=== PATIENT | male | born 1945 | race Caucasian/White ===

== ENCOUNTER 2016-12-12 12:28 | Emergency (ER) | payer OTHER ==
[2016-12-12 12:33] VITALS: BMI 32.3
--- NOTE | 2016-12-12 12:43 | DR.GENAD ---
HPI - PCP Primary Care Physician: KYLIE MEDINA - Complaint/Symptoms Chief Complaint:: PATIENT STATED THAT HE HAS BEEN UP ALMOST ALL NIGHT JUST NOT FEELING RIGHT. HE STATED THAT HE WOULD HAVE HOT THEN COLD FLASHES. HE ALSO STATED THAT HE GOT CHOKED ONE TIME AND ALMOST LOST HIS BREATH. - Nurses notes reviewed Nurses Notes Review: Yes - Source History Provided: Patient, EMS - Mode of Arrival Mode of Arrival: EMS - Timing Onset of Chief Complaint: 12/11/16 Came on: Gradually - Duration Duration: Intermittent How lon Duration: Hours - Location Location: lungs - Severity Severity: Mild - Modifying Factors Worsens:: exertion - Associated Signs and Symptoms Associated Signs and Symptoms: hx of cva PMH - PMH Past Medical History: Yes Past Medical History: Hypertension Past Surgical History: Yes Surgical History: Cholecystectomy - Family History History of Family Medical Conditions: Yes Family Medical History: Diabetes Mellitus, [place], Coronary Artery Disease, Hypertension - Social History Does patient currently use any type of tobacco product: No Have you used tobacco products in the last 12 months: No Type of Tobacco Use: None Does any household member use tobacco: No Alcohol Use: None Do you use any recreational Drugs:: No Lives With: Family Lives Where: Home - infectious screening In the last 2 months have you had wt loss of >10#?: NO Have you had fever, night sweats or hemotysis?: No Have you traveled outside the country in the last 6 months?: No Isolation: Standard ROS - Review of Systems Constitutional: No Symptoms Reported Eyes: Blurred Vision (macular degeneration) ENTM: Nose Congestion Respiratoy: No Symptoms Reported Cardiovascular: No Symptoms Reported Gastrointestinal/Abdominal: No Symptoms Reported Genitourinary: No Symptoms Reported Neurological: No Symptoms Reported Musculoskeletal: No Symptoms Reported Integumentary: No Symptoms Reported Hematologic/Lymphatic: No Symptoms Reported Psychiatric: Anxiety PE - Vital Signs Vitals: Temperature 97.7 F Pulse Rate [Carotid] 91 Pulse Rate 84 Respiratory Rate 18 Blood Pressure [Right Arm] 152/88 Blood Pressure 165/88 O2 Sat by Pulse Oximetry 97 - General Limitations: No Limitations General Appearance: Alert, In No Apparent Distress - Head Head Exam: Normal Inspection - Eyes Eye exam: Normal Appearance, EOMI. negative: Scleral Icterus, Conjunctival Injection - ENT ENT Exam: Normal Exam, Normal Oropharynx External Ear Exam: Normal External Inspection Nose Exam: Normal Nose Exam Mouth Exam: Normal Inspection Throat Exam: Normal Inspection - Neck Neck Exam: Normal Inspection, Full ROM, Trachea Midline - Chest Chest Inspection: Normal Inspection - Respiratory Respiratory Exam: Normal Lung Sounds Bilat. negative: Accessory Muscle Use, Respiratory Distress Respiratory Exam: Bilateral Clear to Auscultation - Cardiovascular Cardiovascular Exam: Regular Rate - Abdominal Exam Abdominal Exam: Normal Inspection, Normal Bowel Sounds, Soft - Extremities Extremities Exam: Normal Inspection, Full ROM - Back Back Exam: Normal Inspection - Neurologic Neurological Exam: Alert, Oriented X3, CN II-XII Intact - Psychiatric Psychiatric Exam: Depressed - Skin Skin Exam: Intact, Normal Color Course - Consultation Called: 15:32 Call Returned: 15:32 Consultation Comments: case discussed with DR. Calvo will put in observation, Chest pain protocol ROR - Labs Reviewed Result Diagrams: 12/12/16 13:24 12/12/16 13:24 Laboratory: WBC 5.4 X10^3/uL (3.6-10.0) 12/12/16 13:24 RBC 5.64 X10^6/uL (4.7-6.0) 12/12/16 13:24 Hgb 15.9 g/dL (13.5-18.0) 12/12/16 13:24 Hct 46.1 % (42.0-54.0) 12/12/16 13:24 MCV 81.8 fL (80.0-100.0) 12/12/16 13:24 MCH 28.2 pg (27.0-34.0) 12/12/16 13:24 MCHC 34.5 g/dL (33.0-35.0) 12/12/16 13:24 RDW 14.4 % (11.6-16.5) 12/12/16 13:24 Plt Count 202 X10^3/uL (150.0-450.0) 12/12/16 13:24 MPV 9.0 fL (7.4-11.0) 12/12/16 13:24 Neut % 61.0 % (42.0-75.0) 12/12/16 13:24 Lymph % 29.7 % (21.0-51.0) 12/12/16 13:24 [place] % 6.1 % (0.0-13.0) 12/12/16 13:24 Eos % 2.7 % (0.9-2.9) 12/12/16 13:24 Baso % 0.5 % (0.2-1.0) 12/12/16 13:24 Neut # 3.3 x10^3/uL (2.2-4.8) 12/12/16 13:24 Lymph # 1.6 X10^3/uL (1.3-2.9) 12/12/16 13:24 [place] # 0.3 x10^3/uL (0.3-0.8) 12/12/16 13:24 Eos # 0.1 x10^3/uL (0.0-0.2) 12/12/16 13:24 Baso # 0.0 X10^3/uL (0.0-0.1) 12/12/16 13:24 Absolute Nucleated RBC 0.0 /100WBC 12/12/16 13:24 D-Dimer < 100 ng/mL (0-400) 12/12/16 13:24 Sodium 141 mmol/L (136-145) 12/12/16 13:24 Corrected Sodium 143 mmol/L (136-145) 12/12/16 13:24 Potassium 3.6 mmol/L (3.5-5.1) 12/12/16 13:24 Chloride 105 mmol/L (98-107) 12/12/16 13:24 Carbon Dioxide 24.1 mmol/L (21-32) 12/12/16 13:24 BUN 9 mg/dL (7-18) 12/12/16 13:24 Creatinine 1.11 mg/dL (0.70-1.30) 12/12/16 13:24 Est GFR (MDRD) Af Amer > 60 (>60) 12/12/16 13:24 Est GFR (MDRD) Non-Af > 60 (>60) 12/12/16 13:24 Glucose 202 mg/dL (65-99) H 12/12/16 13:24 Calcium 9.1 mg/dL (8.5-10.1) 12/12/16 13:24 Corrected Calcium TNP 12/12/16 13:24 Total Bilirubin 1.30 mg/dL (0.2-1.0) H 12/12/16 13:24 AST 36 Units/L (15-37) 12/12/16 13:24 ALT 69 Units/L (12-78) 12/12/16 13:24 Alkaline Phosphatase 60 Units/L (46-116) 12/12/16 13:24 Creatine Kinase 134 Units/L (39-308) 12/12/16 13:24 CK-MB (CK-2) 1.4 ng/mL (0-4.0) 12/12/16 13:24 CK/CKMB % Calc 1.0 % (<4) 12/12/16 13:24 Troponin I < 0.02 ng/mL (0-1.5) 12/12/16 13:24 B-Natriuretic Peptide 10.6 pg/mL (0-79) 12/12/16 13:24 Total Protein 7.3 g/dL (6.4-8.2) 12/12/16 13:24 Albumin 4.0 g/dL (3.4-5.0) 12/12/16 13:24 Globulin 3.3 g/dL (2.5-4.5) 12/12/16 13:24 Albumin/Globulin Ratio 1.2 Ratio (1.1-2.1) 12/12/16 13:24 Specimen Type Clean catch urine 12/12/16 14:21 Urine Color Yellow (YELLOW) 12/12/16 14:21 Urine Appearance Hazy (CLEAR) 12/12/16 14:21 Urine pH 8.0 (5.0 - 8.0) 12/12/16 14:21 Ur Specific [place] 1.015 (1.000-1.030) 12/12/16 14:21 Urine Protein Negative (NEGATIVE) 12/12/16 14:21 Urine Glucose (UA) 4+ (NEGATIVE) 12/12/16 14:21 Urine Ketones Negative (NEGATIVE) 12/12/16 14:21 Urine Occult Blood Negative (NEGATIVE) 12/12/16 14:21 Urine Nitrite Negative (NEGATIVE) 12/12/16 14:21 Urine Bilirubin Negative (NEGATIVE) 12/12/16 14:21 Urine Urobilinogen Normal (NORMAL) 12/12/16 14:21 Ur Leukocyte Esterase Negative (NEGATIVE) 12/12/16 14:21 Urine RBC 0-2 /HPF (NEGATIVE) 12/12/16 14:21 Urine WBC 0-2 /HPF (NEGATIVE) 12/12/16 14:21 Ur Squamous Epith Cells Rare /HPF (NEGATIVE) 12/12/16 14:21 Urine Bacteria 1+ /HPF (NEGATIVE) 12/12/16 14:21 Ur Culture Indicated? No/not indicated 12/12/16 14:21 - XRAY XRAY Interpreted by: Radiologist XRAY Findings: chest: no acute disease - EKG Rate: 82 [place]: Normal Rhythm: NSR Block: None Hypertrophy: None ST: Normal - Diagnosis Discharge Problem: Dyspnea on exertion - Discharge Plan Condition: Stable - Follow ups/Referrals Follow ups/Referrals: GARDENIA MEDINA [Primary Care Provider] - 3 days - Instructions
[2016-12-12] MEDS ORDERED: ZOFRAN INJ 4 MG VIAL ONE (13:00)
[2016-12-12] MEDS ORDERED: ZOFRAN INJ 4 MG VIAL IVP ONE (13:00)
--- NOTE | 2016-12-12 13:23 | RAD ---
HISTORY: Shortness of breath Study: PA and lateral chest Comparison: October 2013 Findings: The trachea is midline. The cardiac silhouette is unremarkable. The lungs are clear without focal infiltrate or effusion. The bony thorax is unremarkable. IMPRESSION: 1. No acute cardiopulmonary disease. Reported By:
[2016-12-12 13:41] LABS: BASOPHILS % (AUTO) 0.5 % (0.2-1.0); EOSINOPHILS # (AUTO) 0.1 x10^3/uL (0.0-0.2); EOSINOPHILS % (AUTO) 2.7 % (0.9-2.9); HEMATOCRIT 46.1 % (42.0-54.0); HEMOGLOBIN 15.9 g/dL (13.5-18.0); LYMPHOCYTES # (AUTO) 1.6 X10^3/uL (1.3-2.9); LYMPHOCYTES % (AUTO) 29.7 % (21.0-51.0); MEAN CORPUSCULAR HEMOGLOBIN 28.2 pg (27.0-34.0); MEAN CORPUSCULAR HGB CONC 34.5 g/dL (33.0-35.0); MEAN CORPUSCULAR VOLUME 81.8 fL (80.0-100.0); MONOCYTES # (AUTO) 0.3 x10^3/uL (0.3-0.8); MONOCYTES % (AUTO) 6.1 % (0.0-13.0); NEUTROPHILS # (AUTO) 3.3 x10^3/uL (2.2-4.8); PLATELET COUNT 202 X10^3/uL (150.0-450.0); RED BLOOD COUNT 5.64 X10^6/uL (4.7-6.0); RED CELL DISTRIBUTION WIDTH 14.4 % (11.6-16.5); WHITE BLOOD COUNT 5.4 X10^3/uL (3.6-10.0)
[2016-12-12 13:50] LABS: BLOOD UREA NITROGEN 9 mg/dL (7-18); CALCIUM 9.1 mg/dL (8.5-10.1); CARBON DIOXIDE 24.1 mmol/L (21-32); CHLORIDE 105 mmol/L (98-107); COR NA(FOR HYPERGLY) 143 mmol/L (136-145); CREATININE 1.11 mg/dL (0.70-1.30); GLUCOSE 202 mg/dL (65-99); SODIUM 141 mmol/L (136-145); TROPONIN I < 0.02 ng/mL (0-1.5); eGFR BLACK RACES > 60 (>60); eGFR NON BLACK RACES > 60 (>60)
[2016-12-12 13:55] LABS: ALANINE AMINOTRANSFERASE 69 Units/L (12-78); ALKALINE PHOSPHATASE 60 Units/L (46-116); ASPARTATE AMINO TRANSFERASE 36 Units/L (15-37); CREATINE KINASE 134 Units/L (39-308); CREATINE KINASE MB 1.4 ng/mL (0-4.0); TOTAL PROTEIN 7.3 g/dL (6.4-8.2)
[2016-12-12 14:30] LABS: BILIRUBIN,URINE NEGATIVE (NEGATIVE); BLOOD/HEMOGLOBIN,URINE NEGATIVE (NEGATIVE); GLUCOSE, URINE 4+ (NEGATIVE); KETONES,URINE NEGATIVE (NEGATIVE); LEUKOCYTE ESTERASE ,URINE NEGATIVE (NEGATIVE); NITRITES,URINE NEGATIVE (NEGATIVE); PROTEIN,URINE NEGATIVE (NEGATIVE); UROBILINOGEN,URINE NORMAL (NORMAL)
[2016-12-12 14:40] LABS: APPEARANCE,URINE HAZY (CLEAR); BACTERIA,URINE 1+ /HPF (NEGATIVE); COLOR,URINE YELLOW (YELLOW); RBC,URINE 0-2 /HPF (NEGATIVE); SQUAMOUS EPITHELIAL CELL,UR RARE /HPF (NEGATIVE)
[2016-12-12 17:17] LABS: CKMB % 0.6 % (<4); CREATINE KINASE 195 Units/L (39-308); CREATINE KINASE MB 1.1 ng/mL (0-4.0); TROPONIN I < 0.02 ng/mL (0-1.5)
[2016-12-12] MEDS ORDERED: ZOFRAN INJ 4 MG VIAL IVP PRN (18:11)
[2016-12-12] MEDS ORDERED: VALIUM PO PRN (18:28)
[2016-12-12] MEDS ORDERED: VALIUM PO ONE (18:29)
[2016-12-12] MEDS ORDERED: TRICOR TAB 48 MG PO SCH (21:00)
[2016-12-12] MEDS ORDERED: LIPITOR TAB 40 MG PO SCH (21:00)
--- NOTE | 2016-12-12 21:41 | CT ---
CT brain without contrast Indication: Headache and dizziness Comparison: 12/13/2015 Technique: Multiple axial images of the brain were obtained from the skull base to the vertex without administr ation of IV contrast. Coronal and sagittal images were also provided. Radiation dose reduction techniques were performed utilizing adjustment for MA/kVP based on patient body size. Findings: There is fairly severe encephalomalacia within the left cerebellar hemisphere consistent with evolut ion of remote infarct. There is increased attenuation within the left greater than right middle cerebral arteries. Similar findings were seen on prior examination. No evidence of acute infarct within either middle cerebral arterial territories. There is no change in bilateral periventricular and deep white matter hypoatte nuation most consistent with chronic microvascular ischemic disease. Generalized cerebral atrophy. N o acute osseous abnormality. Ventricles are normal in caliber. Sinuses are clear. Orbits are normal. IMPRESSION: 1. Aside for evolution of left cerebellar hemisphere infarct no change from prior examination. No ac [place] intracranial hemorrhage mass effect or vasogenic edema. 2. Please note there is a small metallic foreign body along the lateral aspect of the left globe. Reported By:
[2016-12-12] MEDS: NEURONTIN CAP 300 MG PO SCH (22:14)
[2016-12-12] MEDS: PriLOSEC PO SCH (22:14)
[2016-12-12] MEDS: NORVASC TAB 5 MG PO SCH (22:14)
[2016-12-12] MEDS: HumuLIN R SC PRN (22:27)
[2016-12-12 23:20] LABS: CKMB % 0.7 % (<4); CREATINE KINASE 160 Units/L (39-308); CREATINE KINASE MB 1.1 ng/mL (0-4.0); TROPONIN I < 0.02 ng/mL (0-1.5)
[2016-12-13] MEDS: NEURONTIN CAP 300 MG PO SCH ×2 (06:12→13:57)
[2016-12-13] MEDS: HumuLIN R SC PRN ×2 (06:20→14:12)
--- NOTE | 2016-12-13 06:30 | RAD ---
HISTORY: Shortness of breath Study: Chest one view Comparison: December 12, 2016 Findings: The trachea is midline. The cardiac silhouette is mildly enlarged. No congestive heart failure is n oted.. The lungs are mildly hypoinflated but free of acute infiltrates. No pleural effusions are id entified.. The bony thorax is unremarkable. IMPRESSION: 1. Mild cardiomegaly without congestive heart failure 2. Lungs mildly hypoinflated but clear Reported By:
[2016-12-13 06:35] LABS: BASOPHILS # (AUTO) 0.1 X10^3/uL (0.0-0.1); BASOPHILS % (AUTO) 0.9 % (0.2-1.0); EOSINOPHILS # (AUTO) 0.2 x10^3/uL (0.0-0.2); EOSINOPHILS % (AUTO) 3.7 % (0.9-2.9); HEMATOCRIT 42.4 % (42.0-54.0); HEMOGLOBIN 14.9 g/dL (13.5-18.0); LYMPHOCYTES % (AUTO) 31.6 % (21.0-51.0); MEAN CORPUSCULAR HEMOGLOBIN 28.3 pg (27.0-34.0); MEAN CORPUSCULAR VOLUME 80.8 fL (80.0-100.0); MEAN PLATELET VOLUME 9.2 fL (7.4-11.0); MONOCYTES # (AUTO) 0.5 x10^3/uL (0.3-0.8); MONOCYTES % (AUTO) 7.5 % (0.0-13.0); NEUTROPHILS # (AUTO) 3.5 x10^3/uL (2.2-4.8); NEUTROPHILS % (AUTO) 56.3 % (42.0-75.0); PLATELET COUNT 197 X10^3/uL (150.0-450.0); RED BLOOD COUNT 5.25 X10^6/uL (4.7-6.0); RED CELL DISTRIBUTION WIDTH 14.6 % (11.6-16.5); WHITE BLOOD COUNT 6.3 X10^3/uL (3.6-10.0)
[2016-12-13 06:56] LABS: ALANINE AMINOTRANSFERASE 60 Units/L (12-78); ALBUMIN 3.6 g/dL (3.4-5.0); ALKALINE PHOSPHATASE 57 Units/L (46-116); ASPARTATE AMINO TRANSFERASE 27 Units/L (15-37); BLOOD UREA NITROGEN 13 mg/dL (7-18); CALCIUM 8.9 mg/dL (8.5-10.1); CARBON DIOXIDE 25.9 mmol/L (21-32); CHLORIDE 107 mmol/L (98-107); CHOL/HDL RATIO 3.9 (0.0-5.0); CHOLESTEROL 110 mg/dL (0-200); CKMB % 0.6 % (<4); COR NA(FOR HYPERGLY) 144 mmol/L (136-145); CREATINE KINASE 164 Units/L (39-308); CREATININE 1.37 mg/dL (0.70-1.30); GLUCOSE 149 mg/dL (65-99); HDL CHOLESTEROL 28 mg/dL (40-60); SODIUM 143 mmol/L (136-145); TOTAL PROTEIN 6.6 g/dL (6.4-8.2); TRIGLYCERIDES 156 mg/dL (0-150); TROPONIN I < 0.02 ng/mL (0-1.5); eGFR BLACK RACES > 60 (>60); eGFR NON BLACK RACES 54 (>60)
[2016-12-13] MEDS ORDERED: GLUCOTROL XL PO SCH (09:00)
[2016-12-13] MEDS ORDERED: JANUVIA PO SCH (09:00)
[2016-12-13] MEDS ORDERED: SYNTHROID 50 mcg TAB PO SCH (09:00)
[2016-12-13] MEDS ORDERED: PLAVIX PO SCH (09:00)
[2016-12-13] MEDS ORDERED: ASPIRIN EC 81 MG PO SCH (09:00)
[2016-12-13] MEDS: NORVASC TAB 5 MG PO SCH (09:18)
[2016-12-13] MEDS: PriLOSEC PO SCH (09:19)
--- NOTE | 2016-12-13 13:04 | DR.CARTERS ---
Short Stay Summary - Short Stay Summary for: Short Stay Summary for Date of:: 12/13/16 - Admission Date Date of Admission: 12/12/16 - Discharge Date Discharge Date: 12/13/16 - Admission Diagnoses (1) Dizziness Status: Acute (2) Headache Status: Acute (3) Nausea Status: Acute (4) History of CVA (cerebrovascular accident) Status: Acute (5) Dyspnea on exertion Status: Acute (6) Diabetes mellitus, type 2 Status: Chronic (7) GERD (gastroesophageal reflux disease) Status: Chronic (8) Hyperlipidemia Status: Chronic (9) Hypertension Status: Chronic (10) Hypothyroidism Status: Chronic - Hospital Course Hospital Course: DAY 1 OF HOSPITAL STAY: IS A 71 YEAR OLD PATIENT OF [facility]. HE PRESENTED TO THE ER WITH COMPLAINS OF HEADACHE, DIZZINESS, NAUSEA, AND SHORTNESS OF BREATH. HE STATED THAT HE HAD A STROKE A YEAR AGO AND THAT HE HAD JUST NOT BEEN FEELING RIGHT. HE VERBALIZED COLD FLASHES AND FEELING LIKE HE WAS CHOKING. LABS AND XRAYS WERE OBTAINED IN ER AND REPORTED THE FOLLOWING: CBC WAS WNL. CMP WAS WNL EXCEPT GLUCOSE 202, AND TOTAL BILIRUBIN 1.30. CARDIAC ENZYMES WERE WNL. URINALYSIS WNL. EKG WAS WNL. CHEST XRAY WNL. BECAUSE OF HIS PREVIOUS CVA, WE ADMITTED PATIENT FOR FURTHER TREATMENT AND EVALUATION. WE CONTINUED PATIENT'S HOME MEDICATIONS OF ASA, PLAVIX, AND LIPTIOR. DAY 2 OF HOSPITAL STAY: PATIENT'S CONDITION IMPROVED. PATIENT WAS NOTED WITH NO MENTAL STATUS CHANGES AND REPORTED THAT DIZINESS HAD IMPROVED. PATIENT WAS NOTED WITH NO WEAKNESS. WE OBTAINED A BRAIN CT TO RULE OUT CVA. IT REPORTED EVOLUTION OF LEFT CEREBELLAR HEMISPHERE INFARCT NO CHANGE FROM PRIOR EXAMINATION. NO INTRACRANIAL HEMORRHAGE MASS EFFECT OR VASOGENIC EDEMA. A SMALL METALLIC FROEIGN BODY ALONG THE LATERAL ASPECT OF THE LEFT GLOVE WAS SEEN. PATIENT WAS SCHEDULED FOR A CARDIAC CTA YESTERDAY, HOWEVER, TEST WAS UNABLE TO BE OBTAINED DUE TO ACUTE DIZZINESS. THIS TEST WILL BE COMPLETED OUTPATIENT AND WILL BE SCHEDULED ON DISCHARGE. HE WILL CONTINUE ON CURRENT MEDICATIONS AND FOLLOW-UP WITH FOR NUCLEAR STRESS TEST IF NEEDED. WE PLANNED FOR DISCHARGE. INSTRUCTIONS FOR FOLLOW-UP AND MEDICATIONS WERE DISCUSSED WITH PATIENT AND FAMILY. BOTH VERBALIZED UNDERSTANDING. PATIENT WAS DISCHARGED HOME IN STABLE CONDITION WITH FAMILY. - Discharge Medications Discharge Medications: Atorvastatin Calcium 1 tab PO HS 12/12/16 [History] Clopidogrel Bisulfate [Clopidogrel] 1 tab PO DAILY 12/12/16 [History] Gabapentin 2 tabs PO TID 12/12/16 [History] Glipizide [Glipizide ER 5 mg] 1 tab PO DAILY 12/12/16 [History] Potassium Chloride [Potassium Chloride ER] 1 tab PO QID PRN 12/12/16 [History] Aspirin [ASPIRIN 325 MG *] 325 mg PO DAILY #100 tab 12/13/16 [Rx] Ranitidine HCl [ZANTAC TAB 150 MG *] 150 mg PO DAILY #30 tab 12/13/16 [Rx] - Discharge Plan Disposition: HOME, SELF-CARE Condition: Stable Prescriptions: Aspirin [ASPIRIN 325 MG *] 325 mg PO DAILY #100 tab Ranitidine HCl [ZANTAC TAB 150 MG *] 150 mg PO DAILY #30 tab - Follow up/Referrals Follow up/Referrals: , CARDIOLOGY [Other] GARDENIA MEDINA [Primary Care Provider] - 12/20/16 9:00 am - Instructions Instructions: Ranitidine tablets or capsules, Fall Prevention in the Home, Easy -to-Read, Stroke Prevention, [id number], Form - Blood Pressure Record Sheet, Aspirin and Your Heart, Hypertension, [id number], Aspirin, ASA oral tablets, Managing Your High Blood Pressure, Chest Pain Observation Additional Instructions: ACTIVITY TOLERATED. DIET TOLERATED. Forms: Patient Portal
[2016-12-13 13:25] VITALS: BP 125/79
[2016-12-13] MEDS ORDERED: SNACK - Diabetic Appropriate PO SCH (20:00)
== END 2016-12-13 16:05 | disposition home or self-care (01) ==
LOC: ER 12:34 → MED/SURG 15:34 → ICU 16:42
PROVIDERS: ADMIT Internal Medicine; ATTEND Internal Medicine
DX: R06.02 Shortness of breath (principal); R42 Dizziness and giddiness; R06.09 Other forms of dyspnea; R07.89 Other chest pain; R51 Headache; I10 Essential (primary) hypertension; R94.31 Abnormal electrocardiogram [ECG] [EKG]; I51.7 Cardiomegaly; R11.0 Nausea; E11.65 Type 2 diabetes mellitus with hyperglycemia; K21.9 Gastro-esophageal reflux disease without esophagitis; E78.2 Mixed hyperlipidemia; E03.8 Other specified hypothyroidism; Z86.73 Personal history of transient ischemic attack (TIA), and cerebral infarction without residual deficits; M54.2 Cervicalgia
CPT/HCPCS: 36415; 70450; 71010; 71020; 80053; 80061; 81001; 82550; 82553; 83880; 84484; 85025; 85378; 93005; 93306; 96365; 96374; 99284; A4216; G0378; J1815; J2405

== ENCOUNTER → 2016-12-12 | Outpatient (CLI) | payer SELFPAY ==
[2016-12-12 14:24] VITALS: BP 152/88
--- NOTE | 2016-12-12 18:07 | CT ---
HISTORY: Positive family history, screening, chest pain, dyspnea Cardiac calcium scoring. Technique: Multiple axial images of the chest were obtained on a [address] from the aortic arch to the base of the heart with noncontrast prospective gating. AEC was utilized. Findings: A total calcium score of 217 is observed. The patient is between the 25th and 50th percentile for a ge and sex with definite, at least moderate, atherosclerotic plaque identified and mild Coronary art hunter disease highly likely with significant narrowings possible. Surrounding soft tissues and osseous structures are grossly unremarkable. IMPRESSION: Elevated Coronary calcium score as above. Reported By:
== END ==
LOC: RAD 15:31
PROVIDERS: ATTEND Nurse Practitioner Family
DX: Z13.6 Encounter for screening for cardiovascular disorders (principal)

== ENCOUNTER → 2017-01-10 | Outpatient (CLI) | payer OTHER ==
[2016-12-13 13:25] VITALS: BP 125/79
[2017-01-10 10:36] LABS: ALBUMIN 3.9 g/dL (3.4-5.0); BILIRUBIN,DIRECT 0.21 mg/dL (0-0.2); CHOL/HDL RATIO 3.3 (0.0-5.0); TOTAL PROTEIN 7.1 g/dL (6.4-8.2)
[2017-01-10 14:12] LABS: BASOPHILS # (AUTO) 0.1 X10^3/uL (0.0-0.1); BASOPHILS % (AUTO) 0.9 % (0.2-1.0); EOSINOPHILS # (AUTO) 0.2 x10^3/uL (0.0-0.2); EOSINOPHILS % (AUTO) 4.5 % (0.9-2.9); HEMATOCRIT 43.6 % (42.0-54.0); HEMOGLOBIN 15.1 g/dL (13.5-18.0); LYMPHOCYTES # (AUTO) 1.9 X10^3/uL (1.3-2.9); LYMPHOCYTES % (AUTO) 33.8 % (21.0-51.0); MEAN CORPUSCULAR HEMOGLOBIN 28.4 pg (27.0-34.0); MEAN CORPUSCULAR HGB CONC 34.7 g/dL (33.0-35.0); MEAN CORPUSCULAR VOLUME 81.8 fL (80.0-100.0); MEAN PLATELET VOLUME 8.8 fL (7.4-11.0); MONOCYTES # (AUTO) 0.5 x10^3/uL (0.3-0.8); MONOCYTES % (AUTO) 9.3 % (0.0-13.0); NEUTROPHILS # (AUTO) 2.8 x10^3/uL (2.2-4.8); NEUTROPHILS % (AUTO) 51.5 % (42.0-75.0); PLATELET COUNT 188 X10^3/uL (150.0-450.0); RED BLOOD COUNT 5.33 X10^6/uL (4.7-6.0); RED CELL DISTRIBUTION WIDTH 14.5 % (11.6-16.5); WHITE BLOOD COUNT 5.5 X10^3/uL (3.6-10.0)
== END ==
LOC: LAB 09:47
PROVIDERS: ATTEND Internal Medicine Cardiovascular Disease
DX: Z79.899 Other long term (current) drug therapy (principal)
CPT/HCPCS: 36415; 80061; 80076; 85025

== ENCOUNTER 2020-03-28 20:23 | Inpatient (IN) ==
[2020-03-28 20:30] VITALS: BMI 30.8
[2020-03-28 20:34] LABS: ABG ALLEN TEST POS; ABG BASE EXCESS 1.8 mmol/L (-2.0-2.0); ABG HCO3 25.7 mmol/L (22-26)
--- NOTE | 2020-03-28 20:39 | DR.SOBA ---
HPI Time Seen Time Seen by Provider: 03/28/20 20:39 Primary Care Physician Primary Care Physician: CAROL HPI Comment HPI Comment: PATIENT IS 75 YR OLD FEMALE IN ER WITH INCREASING SOB, COUGH, CONGESTION AND COVID 19 POSITIVE. NO FEVER. HAVING GENERALIZED WEAKNESS AND NON PRODUCTIVE COUGH. HAVING PLEURITIC CHEST TIGHTNESS OF MODERATE INTENSITY. Complaints Chief Complaint Doctors Comments: INCREASING SOB, COVID 19 POSITIVE. Chief Complaint:: PT POSITIVE FOR COVID AND CAME IN TONIGHT FOR BEING SHORT OF BREATH COVID-19 Coronavirus risk:travel/contact w/high risk person: No Has patient experienced Coronavirus symptoms: Yes Coronavirus symptoms experienced: Coughing and Shortness of Breath Reviewed Nurses Notes Reviewed: Yes Source History Provided: Patient and Family Member Mode of Arrival Mode of Arrival: Wheelchair Timing Onset of Chief Complaint: 03/28/20 Duration Duration: Days Context Onset:: At Rest PE Risk Factors:: None History of:: None Currently on:: Neither Modifying Factors Worsens:: Exertion Improves:: Sitting Up Associated Signs and Symptoms Associated Signs and Symptoms: Cough (SOB.) If Chest Pain Quality: Pleuritic Location: Substernal If Cough Cough: Nonproductive PMH PMH Past Medical History: Yes Past Medical History: CVA, Diabetes and Hypertension Past Surgical History: Yes Surgical History: Cholecystectomy and Other Family History History of Family Medical Conditions: Yes Family Medical History: Diabetes Mellitus, [place], Coronary Artery Disease and Hypertension Social History Does patient currently use any type of tobacco product: No Have you used tobacco products in the last 12 months: No Type of Tobacco Use: None Does any household member use tobacco: No Alcohol Use: None Do you use any recreational Drugs:: No Lives With: Family Lives Where: Home Infectious screening In the last 2 months have you had wt loss of >10#?: NO Have you had fever, night sweats or hemotysis?: No Have you traveled outside the country in the last 6 months?: No Isolation: Droplet ROS Review of Systems Constitutional: See HPI, Weakness and Fatigue Eyes: No Symptoms Reported and See HPI ENTM: Nose Congestion; negative Ear Pain and Throat Pain Respiratoy: See HPI, Non-Productive Cough and Short of Breath; negative Wheezing Cardiovascular: See HPI and Chest Pain (PLEURITIC CHEST PAIN.) Gastrointestinal/Abdominal: No Symptoms Reported and See HPI; negative Abdominal Pain, Diarrhea and Vomiting Genitourinary: No Symptoms Reported and See HPI; negative Dysuria, Frequency and Hematuria Neurological: See HPI, Headache and Weakness; negative Dizziness Musculoskeletal: See HPI, Back Pain and Muscle Pain Integumentary: No Symptoms Reported and See HPI; negative Change in Color, Rash and Juandice Hematologic/Lymphatic: No Symptoms Reported and See HPI; negative Easy Bruising and Swollen Glands Endocrine: See HPI and Decreased Appetite; negative Increased Thirst and Increased Urine Psychiatric: No Symptoms Reported and See HPI All Other Systems: Reviewed and Negative PE Vital Signs Vitals: Temperature 98.9 F Pulse Rate [Left Brachial] 87 Pulse Rate 98 Respiratory Rate 30 Blood Pressure [Left Arm] 145/74 Blood Pressure [Right Arm] 168/79 Blood Pressure 166/76 O2 Sat by Pulse Oximetry 85 General Limitations: No Limitations General Appearance: Alert and In Distress Head Head Exam: Normal Inspection and Atraumatic Eyes Eye exam: Normal Appearance and PERRL; negative Scleral Icterus and Conjunctival Injection ENT ENT Exam: Normal External Ear Exam and TM's Normal Bilaterally; negative Normal Oropharynx Neck Neck Exam: Normal Inspection and Trachea Midline; negative Tenderness and Lymphadenopathy Chest Chest Inspection: Normal Inspection and Symmetric Chest Wall Rise; negative Tenderness Respiratory Respiratory Exam: Normal Lung Sounds Bilat and Respiratory Distress; negative Accessory Muscle Use and Chest Wall Tenderness Respiratory Exam: Bilateral: Rhonchi and Lower: Rhonchi Cardiovascular Cardiovascular Exam: Regular Rate, Normal Rhythm and Normal Heart Sounds; negative Systolic Murmur and Diastolic Murmur Abdominal Exam Abdominal Exam: Normal Inspection, Normal Bowel Sounds and Soft; negative Tenderness Extremities Extremities Exam: Normal Inspection, Normal Capillary Refill and Edema; negative Tenderness and Calf Tenderness Back Back Exam: Normal Inspection; negative (R) CVA Tenderness and (L) CVA Tenderness Neurologic Neurological Exam: Alert and Oriented X3 Psychiatric Psychiatric Exam: Normal Affect and Normal Mood Skin Skin Exam: Warm, Dry, Intact and Normal Color MDM Additional Information Obtained Additional Information Obtained From: Old Records and Family Differential Diagnosis Differential Diagnosis: Bronchitis, CHF, Mycardial Infarction, Pneumonia, Pneumothorax, Respiratory Insufficiency and URI Differential Diagnosis Comment:: [place] COURSE Treatment Treatment: SEE ORDERS. NS IV, ZOSYN 3.375 MG IVPB, NS ZOFRAN 4 MG IV. STILL NAUSEATED. COMPAZINE 10 MG PO IN ER. NAUSEA IMPROVING. Reevaluation 1st: Unchanged 2nd: Improved Consultation Consultation Comments: DISCUSSED PATIENT WITH DR. DASH. HE WILL ADMIT PATIENT. Education/Counseling Education/Counseling: Patient Educated On: Diagnosis ROR Labs Reviewed Laboratory Results Reviewed?: Yes Result Diagrams: 04/04/20 04:50 04/04/20 04:50 Laboratory: 03/28/20 21:05 Blood Blood Culture - Final 03/28/20 20:39 Blood Blood Culture - Final WBC 5.5 X10^3/uL (3.6-10.0) 03/28/20 20:39 RBC 4.85 X10^6/uL (4.7-6.0) 03/28/20 20:39 Hgb 13.7 g/dL (13.5-18.0) 03/28/20 20:39 Hct 40.3 % (42.0-54.0) L 03/28/20 20:39 MCV 83.2 fL (80.0-100.0) 03/28/20 20:39 MCH 28.3 pg (27.0-34.0) 03/28/20 20: MCHC 34.1 g/dL (33.0-35.0) 03/28/20 20: RDW 15.1 % (11.6-16.5) 03/28/20 20:39 Plt Count 139 X10^3/uL (150.0-450.0) L 03/28/20 20:39 MPV 8.5 fL (7.4-11.0) 03/28/20 20:39 Neut % (Auto) 81.0 % (42.0-75.0) H 03/28/20 20:39 Lymph % (Auto) 13.6 % (21.0-51.0) L 03/28/20 20:39 [place] % (Auto) 5.3 % (0.0-13.0) 03/28/20 20:39 Eos % (Auto) 0.0 % (0.9-2.9) L 03/28/20 20:39 Baso % (Auto) 0.1 % (0.2-1.0) L 03/28/20 20:39 Neut # (Auto) 4.5 x10^3/uL (2.2-4.8) 03/28/20 20:39 Lymph # (Auto) 0.7 X10^3/uL (1.3-2.9) L 03/28/20 20:39 [place] # (Auto) 0.3 x10^3/uL (0.3-0.8) 03/28/20 20: Eos # (Auto) 0.0 x10^3/uL (0.0-0.2) 03/28/20 20: Baso # (Auto) 0.0 X10^3/uL (0.0-0.1) 03/28/20 20: Absolute Nucleated RBC 0.0 /100WBC 03/28/20 20:39 Sample Site Lr 03/28/20 20: ABG pH 7.450 (7.35-7.45) 03/28/20 20: ABG pCO2 37.0 mmHg (35.0-45.0) 03/28/20 20: ABG pO2 56.0 mmHg (80.0-100.0) L 03/28/20 20: ABG HCO3 25.7 mmol/L (22-26) 03/28/20 20: ABG O2 Saturation 90.0 % (90-100) 03/28/20 20: ABG Base Excess 1.8 mmol/L (-2.0-2.0) 03/28/20 20: Tj Test Pos 03/28/20 20: A-a Gradient 97.0 mmHg 03/28/20 20:29 FiO2 28.0 03/28/20 20:29 Blood Gas Comments Abigail well ae 03/28/20 20: Sodium 138 mmol/L (136-145) 03/28/20 20: Corrected Sodium 141 mmol/L (136-145) 03/28/20 20: Potassium 3.1 mmol/L (3.5-5.1) L 03/28/20 20:39 Chloride 104 mmol/L (98-107) 03/28/20 20: Carbon Dioxide 25.0 mmol/L (21-32) 03/28/20 20: BUN 12 mg/dL (7-18) 03/28/20 20:39 Creatinine 1.11 mg/dL (0.70-1.30) 03/28/20 20:39 Est GFR (MDRD) Af Amer > 60 (>60) 03/28/20 20:39 Est GFR (MDRD) Non-Af > 60 (>60) 03/28/20 20:39 Glucose 242 mg/dL (65-99) H 03/28/20 20:39 Lactic Acid 1.8 mmol/L (0.4-2.0) 03/28/20 20:39 Calcium 8.4 mg/dL (8.5-10.1) L 03/28/20 20:39 Corrected Calcium 9.3 mg/dL (8.5-10.1) 03/28/20 20:39 Ferritin 193 ng/mL (26-388) 03/28/20 20:39 Total Bilirubin 1.00 mg/dL (0.2-1.0) 03/28/20 20:39 AST 22 Units/L (15-37) 03/28/20 20:39 ALT 36 Units/L (12-78) 03/28/20 20:39 Alkaline Phosphatase 50 Units/L (46-116) 03/28/20 20:39 Lactate Dehydrogenase 268 Units/L (85-227) H 03/28/20 20:39 C-Reactive Protein 47.00 mg/L (0-3.0) H 03/28/20 20:39 Total Protein 6.5 g/dL (6.4-8.2) 03/28/20 20:39 Albumin 2.9 g/dL (3.4-5.0) L 03/28/20 20:39 Globulin 3.6 g/dL (2.5-4.5) 03/28/20 20:39 Albumin/Globulin Ratio 0.8 Ratio (1.1-2.1) L 03/28/20 20:39 XRAY XRAY Interpreted by: Radiologist (report noted and discussed with patient.) and Self EKG Rate: 92 [place]: LAD Rhythm: NSR Block: None Hypertrophy: None ST: Nonsp Opioid Opioid Risk Tool Age ([place] box if 16-45): No History of Preadolescent Sexual Abuse: No Total: 0 Total Score Risk Category: Low Risk Copyright: Geovanni BARTON predicting aberrant behaviors Diagnosis Discharge Problem: Hypoxia, COVID-19 virus detected Pneumonia Qualifiers: Pneumonia type: due to unspecified organism Laterality: bilateral Lung location: lower lobe of lung Qualified Code(s): J18.9 - Pneumonia, unspecified organism
[2020-03-28 20:53] LABS: BASOPHILS % (AUTO) 0.1 % (0.2-1.0); HEMATOCRIT 40.3 % (42.0-54.0); HEMOGLOBIN 13.7 g/dL (13.5-18.0); LYMPHOCYTES # (AUTO) 0.7 X10^3/uL (1.3-2.9); LYMPHOCYTES % (AUTO) 13.6 % (21.0-51.0); MEAN CORPUSCULAR HEMOGLOBIN 28.3 pg (27.0-34.0); MEAN CORPUSCULAR HGB CONC 34.1 g/dL (33.0-35.0); MEAN CORPUSCULAR VOLUME 83.2 fL (80.0-100.0); MEAN PLATELET VOLUME 8.5 fL (7.4-11.0); MONOCYTES # (AUTO) 0.3 x10^3/uL (0.3-0.8); MONOCYTES % (AUTO) 5.3 % (0.0-13.0); NEUTROPHILS # (AUTO) 4.5 x10^3/uL (2.2-4.8); PLATELET COUNT 139 X10^3/uL (150.0-450.0); RED BLOOD COUNT 4.85 X10^6/uL (4.7-6.0); RED CELL DISTRIBUTION WIDTH 15.1 % (11.6-16.5); WHITE BLOOD COUNT 5.5 X10^3/uL (3.6-10.0)
[2020-03-28 21:01] LABS: ALANINE AMINOTRANSFERASE 36 Units/L (12-78); ALBUMIN 2.9 g/dL (3.4-5.0); ALKALINE PHOSPHATASE 50 Units/L (46-116); ASPARTATE AMINO TRANSFERASE 22 Units/L (15-37); BLOOD UREA NITROGEN 12 mg/dL (7-18); CALCIUM 8.4 mg/dL (8.5-10.1); CHLORIDE 104 mmol/L (98-107); COR CA(FOR HYPOALB) 9.3 mg/dL (8.5-10.1); COR NA(FOR HYPERGLY) 141 mmol/L (136-145); CREATININE 1.11 mg/dL (0.70-1.30); LACTATE DEHYDROGENASE 268 Units/L (85-227); SODIUM 138 mmol/L (136-145); TOTAL PROTEIN 6.5 g/dL (6.4-8.2); eGFR NON BLACK RACES > 60 (>60)
[2020-03-28 21:26] LABS: LACTIC ACID 1.8 mmol/L (0.4-2.0)
--- NOTE | 2020-03-28 21:45 | RAD ---
HISTORY:Shortness of breath, COVID-19 positiveStudy: Single view chestComparison:03/24/2020Findings:Interval development of bilateral multifocal lung infiltrates compatible with pneumonia. No pneumothorax or pleural effusion identified. Heart size upper limits of normal.IMPRESSION:Interval development of bilateral multifocal lung infiltrates compatible with pneumonia.Electronically signed by: FREDY SADLER (Mar 28, 2020 21:44:19)
[2020-03-28] MEDS ORDERED: ZOSYN VIAL 3.375 GRAMS 3.375 G in NS 100 ML IV + SPIKE MINIBAG* 100 ML IV ONE (21:55)
[2020-03-28] MEDS ORDERED: NS 100 ML IV + SPIKE MINIBAG* 100 ML IV ONE (22:01)
[2020-03-28] MEDS ORDERED: NS 1000 ML 1,000 ML ONE (22:01)
[2020-03-28] MEDS ORDERED: ZOSYN VIAL 3.375 GRAMS IV ONE (22:01)
[2020-03-28] MEDS ORDERED: NS 1000 ML 1,000 ML IV ONE (22:08)
[2020-03-29] MEDS ORDERED: ZOFRAN INJ 4 MG VIAL IVP ONE (02:11)
[2020-03-29] MEDS ORDERED: ZOFRAN INJ 4 MG VIAL ONE (02:12)
[2020-03-29] MEDS ORDERED: VENTOLIN or PROAIR HFA ONE (02:29)
[2020-03-29] MEDS ORDERED: COMPAZINE INJ IVP ONE (03:11)
[2020-03-29] MEDS ORDERED: COMPAZINE INJ ONE (03:12)
[2020-03-29 03:45] LABS: ABG ALLEN TEST POS; ABG BASE EXCESS 4.6 mmol/L (-2.0-2.0); ABG HCO3 28.3 mmol/L (22-26)
[2020-03-29] MEDS ORDERED: TYLENOL 325 MG TAB PO ONE (04:26)
[2020-03-29] MEDS: TYLENOL 325 MG TAB PO PRN (04:43)
[2020-03-29] MEDS ORDERED: POTASSIUM CHL 60 MEQ/NS 0.45% 500 ML IV PRN (04:44)
[2020-03-29] MEDS ORDERED: KLOR-CON PO PRN (04:44)
[2020-03-29] MEDS ORDERED: POTASSIUM CHLORIDE LIQ 20 MEQ UDC PO PRN (04:44)
[2020-03-29] MEDS ORDERED: POTASSIUM CHL 40 MEQ/NS 0.45% 500 ML IV PRN (04:44)
[2020-03-29] MEDS ORDERED: MICRO K EXTEN CAP 10 MEQ PO PRN (04:44)
[2020-03-29] MEDS ORDERED: MAGNESIUM SULFATE 1 GRAM/100 mL PREMIX 1 GM/100 ML BAG IV PRN (04:44)
[2020-03-29] MEDS: VENTOLIN or PROAIR HFA IN PRN ×3 (05:00→13:30)
[2020-03-29 06:24] LABS: BASOPHILS % (AUTO) 0.1 % (0.2-1.0); HEMATOCRIT 41.1 % (42.0-54.0); HEMOGLOBIN 14.2 g/dL (13.5-18.0); LYMPHOCYTES # (AUTO) 0.9 X10^3/uL (1.3-2.9); LYMPHOCYTES % (AUTO) 19.7 % (21.0-51.0); MEAN CORPUSCULAR HEMOGLOBIN 28.5 pg (27.0-34.0); MEAN CORPUSCULAR HGB CONC 34.5 g/dL (33.0-35.0); MEAN CORPUSCULAR VOLUME 82.7 fL (80.0-100.0); MEAN PLATELET VOLUME 8.4 fL (7.4-11.0); MONOCYTES # (AUTO) 0.2 x10^3/uL (0.3-0.8); MONOCYTES % (AUTO) 3.5 % (0.0-13.0); NEUTROPHILS # (AUTO) 3.6 x10^3/uL (2.2-4.8); NEUTROPHILS % (AUTO) 76.7 % (42.0-75.0); PLATELET COUNT 132 X10^3/uL (150.0-450.0); RED BLOOD COUNT 4.97 X10^6/uL (4.7-6.0); RED CELL DISTRIBUTION WIDTH 15.1 % (11.6-16.5); WHITE BLOOD COUNT 4.7 X10^3/uL (3.6-10.0)
[2020-03-29 06:37] LABS: ALANINE AMINOTRANSFERASE 34 Units/L (12-78); ALBUMIN 2.7 g/dL (3.4-5.0); ALKALINE PHOSPHATASE 50 Units/L (46-116); ASPARTATE AMINO TRANSFERASE 26 Units/L (15-37); BLOOD UREA NITROGEN 12 mg/dL (7-18); CALCIUM 8.2 mg/dL (8.5-10.1); CARBON DIOXIDE 26.8 mmol/L (21-32); CHLORIDE 106 mmol/L (98-107); COR CA(FOR HYPOALB) 9.2 mg/dL (8.5-10.1); COR NA(FOR HYPERGLY) 142 mmol/L (136-145); CREATININE 0.99 mg/dL (0.70-1.30); SODIUM 141 mmol/L (136-145); TOTAL PROTEIN 6.4 g/dL (6.4-8.2); eGFR NON BLACK RACES > 60 (>60)
[2020-03-29 06:44] LABS: BILIRUBIN,URINE NEGATIVE (NEGATIVE); BLOOD/HEMOGLOBIN,URINE 2+ (NEGATIVE); GLUCOSE, URINE 1+ (NEGATIVE); KETONES,URINE NEGATIVE (NEGATIVE); LEUKOCYTE ESTERASE ,URINE NEGATIVE (NEGATIVE); NITRITES,URINE NEGATIVE (NEGATIVE); PROTEIN,URINE 3+ (NEGATIVE); UROBILINOGEN,URINE NORMAL (NORMAL)
[2020-03-29 06:53] LABS: AMORPHOUS SEDIMENT,UR TRACE /HPF (NEGATIVE); APPEARANCE,URINE CLEAR (CLEAR); BACTERIA,URINE TRACE /HPF (NEGATIVE); COLOR,URINE YELLOW (YELLOW); MUCUS,URINE FEW /HPF (NEGATIVE); RBC,URINE 0-2 /HPF (0-3); SQUAMOUS EPITHELIAL CELL,UR RARE /HPF (NEGATIVE)
[2020-03-29] MEDS: ZITHROMAX INJ 500 MG VIAL 500 MG in NS 250 ML IV 250 ML IV SCH ×2 (09:29→09:33)
[2020-03-29] MEDS: SOLU-Medrol 40 MG VIAL IVP SCH (09:32)
[2020-03-29] MEDS: VSL#3 PO SCH (09:32)
[2020-03-29] MEDS: ROBITUSSIN DM PO SCH ×4 (09:32→21:38)
[2020-03-29] MEDS: ZOSYN VIAL 3.375 GRAMS 3.375 G in NS 100 ML IV + SPIKE MINIBAG* 100 ML IV SCH ×4 (10:55→21:38)
[2020-03-29] MEDS: LOVENOX INJ 40 MG SYR SC SCH (14:00)
[2020-03-29] MEDS ORDERED: REMDESIVIR (INVESTIGATIONAL DRUG GS-5734) 200 MG in NS 250 ML IV 250 ML IV NR (15:00)
[2020-03-29] MEDS: HumuLIN R SUBCUT PRN ×2 (17:00→21:39)
--- NOTE | 2020-03-29 19:32 | DR.H&P ---
H&P - History & Physical for Day of: H&P Date: 03/29/20 - Chief Complaint Chief Complaint: SOB, CCC, FEVER, COVID + - History of Present Illness History of Present Illness: PT IS 75 WM ER ADMISSION WITH CO SOB, FEVER, CCC AND COVID 19 PNEUMONIA. PT HAS FAILED OUTPT THERAPY WITH PO ZITHROMAX, LEVAQUIN AND PLAQUENIL. PT HAD IM ROCEPHIN AND DECADRON ON SUNDAY PRIOR TO ADMISSION WITHOUT IMPROVEMENT. PT HAS PMH OF CVA 2016, NO CARDIAC BYPASS OR STENTS, DM AND LEGAL BLINDNESS. PT ADMITTED FOR TREATMENT OF ACUTE ILLNESS. - Past Medical History Past Medical History: Hypertension, Diabetes, CVA - Past Surgical History Surgical History: Cholecystectomy, Other - Family History Family Medical History: Diabetes Mellitus, OR, Coronary Artery Disease, Hypertension - Social History Does patient currently use any type of tobacco product: No Have you used tobacco products in the last 12 months: No Type of Tobacco Use: None Does any household member use tobacco: No Alcohol Use: None Drug Use: None - Medications Home Medications: No Known Drug Allergies Allergy (Verified 09/29/19 16:08) CONTINUE taking the following medications albuterol sulfate 2.5 mg INHALATION TID PRN 03/29/20 [History] atorvastatin 20 mg PO HS 03/29/20 [History] azithromycin 250 mg PO DAILY 03/29/20 [History] ergocalciferol (vitamin D2) [Vitamin D2] 50,000 unit PO .2XWK 03/29/20 [History] ezetimibe 10 mg PO DAILY 03/29/20 [History] glipizide 10 mg PO BID 03/29/20 [History] levofloxacin 500 mg PO DAILY 03/29/20 [History] methylprednisolone 12 mg PO DAILY 03/29/20 [History] pioglitazone 15 mg PO BID 03/29/20 [History] promethazine-DM 5 ml PO Q4H PRN 03/29/20 [History] - Review of Systems Constitutional: Fever, Chills, Weakness, Malaise Eyes: No Symptoms Reported Respiratory: Cough, Shortness of Breath, SOB with Excertion, Wheezing Cardiovascular: Edema Gastrointestinal: Nausea Genitourinary: No Symptoms Reported Musculoskeletal: No Symptoms Reported Skin: No Symptoms Reported Neurological: Weakness - Physical Exam Vital Signs: Temperature 98.9 F Pulse Rate [Left Brachial] 82 Pulse Rate 90 Respiratory Rate 26 Blood Pressure [Left Arm] 165/80 Blood Pressure [Right Arm] 168/79 Blood Pressure 166/76 O2 Sat by Pulse Oximetry 91 Oriented: Normal Eyes: Blurred Vision (CHRONIC) Ear: Normal Nose: Normal Throat: Dry Respiratory: Diminished Throughout Cardiovascular: Tachycardia, Edema : Normal Auscultation: Bowel Sounds: Normal Palpation: Normal Tenderness: Normal Skin: Decreased Turgur Musculoskeletal: Normal Psychiatric: Anxiety Affect: Anxious Speech Pattern: Clear, Appropriate - Assessment/Plan (1) Pneumonia due to COVID-19 virus Status: Acute Plan: ADMIT, ICU ISOLATION STATUS. IV HYDRATION, IV ZITHROMAX AND ZOSYN. REMDESIVIR AND CONVALESCENT PLASMA, IV SOLU MEDROL. BS CONTROL, CARDIAC MONITORING. REPEAT AM CXR AND ABG, RESP THERAPY AND SUPPLEMENTAL O2 (2) History of CVA (cerebrovascular accident) Status: Acute (3) Diabetes mellitus, type 2 Status: Chronic (4) GERD (gastroesophageal reflux disease) Status: Chronic (5) Hypertension Status: Chronic - Allergies Allergies/Adverse Reactions: Allergies Allergy/AdvReac Type Severity Reaction Status Date / Time No Known Drug Allergies Allergy Verified 09/29/19 16:08
[2020-03-29] MEDS ORDERED: PLAQUENIL ONE (19:57)
[2020-03-29] MEDS ORDERED: ROBITUSSIN DM ONE (19:57)
[2020-03-29] MEDS ORDERED: ZOSYN VIAL 3.375 GRAMS IV ONE (19:57)
[2020-03-29] MEDS ORDERED: NS 500 ML IV 500 ML IV ONE (19:57)
[2020-03-29] MEDS ORDERED: NS 100 ML IV 100 ML IV ONE (19:57)
[2020-03-29] MEDS: SNACK - Diabetic Appropriate PO SCH (21:00)
[2020-03-29] MEDS: PLAQUENIL PO SCH (21:38)
[2020-03-30] MEDS ORDERED: NS 250 ML IV 250 ML IV ONE (03:06)
[2020-03-30] MEDS: ZOSYN VIAL 3.375 GRAMS 3.375 G in NS 100 ML IV + SPIKE MINIBAG* 100 ML IV SCH ×3 (05:35→21:25)
[2020-03-30] MEDS: HumuLIN R SUBCUT PRN ×3 (05:35→21:24)
[2020-03-30 06:01] LABS: ALANINE AMINOTRANSFERASE 31 Units/L (12-78); ALBUMIN 2.5 g/dL (3.4-5.0); ALKALINE PHOSPHATASE 49 Units/L (46-116); ASPARTATE AMINO TRANSFERASE 31 Units/L (15-37); BLOOD UREA NITROGEN 15 mg/dL (7-18); CALCIUM 8.2 mg/dL (8.5-10.1); CHLORIDE 104 mmol/L (98-107); COR CA(FOR HYPOALB) 9.4 mg/dL (8.5-10.1); COR NA(FOR HYPERGLY) 140 mmol/L (136-145); CREATININE 0.87 mg/dL (0.70-1.30); SODIUM 138 mmol/L (136-145); TOTAL PROTEIN 6.4 g/dL (6.4-8.2); eGFR NON BLACK RACES > 60 (>60)
[2020-03-30 06:11] LABS: BASOPHILS % (AUTO) 0.1 % (0.2-1.0); HEMATOCRIT 40.1 % (42.0-54.0); LYMPHOCYTES # (AUTO) 0.8 X10^3/uL (1.3-2.9); LYMPHOCYTES % (AUTO) 15.9 % (21.0-51.0); MEAN CORPUSCULAR HEMOGLOBIN 28.7 pg (27.0-34.0); MEAN CORPUSCULAR HGB CONC 34.8 g/dL (33.0-35.0); MEAN CORPUSCULAR VOLUME 82.5 fL (80.0-100.0); MEAN PLATELET VOLUME 8.7 fL (7.4-11.0); MONOCYTES # (AUTO) 0.2 x10^3/uL (0.3-0.8); MONOCYTES % (AUTO) 4.6 % (0.0-13.0); NEUTROPHILS % (AUTO) 79.4 % (42.0-75.0); PLATELET COUNT 134 X10^3/uL (150.0-450.0); RED BLOOD COUNT 4.87 X10^6/uL (4.7-6.0); RED CELL DISTRIBUTION WIDTH 15.2 % (11.6-16.5); WHITE BLOOD COUNT 5.1 X10^3/uL (3.6-10.0)
[2020-03-30] MEDS: VENTOLIN or PROAIR HFA IN PRN ×2 (07:50→21:40)
[2020-03-30 08:42] LABS: ABG BASE EXCESS 3.9 mmol/L (-2.0-2.0); ABG HCO3 28.5 mmol/L (22-26)
[2020-03-30 08:43] LABS: ABG ALLEN TEST POS
[2020-03-30] MEDS: LOVENOX INJ 40 MG SYR SC SCH (09:15)
[2020-03-30] MEDS: SOLU-Medrol 40 MG VIAL IVP SCH (09:16)
[2020-03-30] MEDS: REMDESIVIR (INVESTIGATIONAL DRUG GS-5734) 100 MG in NS 250 ML IV 250 ML IV SCH (09:16)
[2020-03-30] MEDS: ZITHROMAX INJ 500 MG VIAL 500 MG in NS 250 ML IV 250 ML IV SCH (09:16)
--- NOTE | 2020-03-30 10:08 | RAD ---
HISTORYPNEUMONIA, SOB, COVID +STUDYCHEST x-ray, 1 VIEWCOMPARISONX-ray 03/28/2020FINDINGSBilateral pneumonia is similar to prior study. Findings are consistent with COVID-19 infection. Borderline CHF changes. Small left pleural effusion is not excluded. No pneumothorax is seen.IMPRESSIONAppearance of the chest is unchanged.Electronically signed by: Dimas Brady (Mar 30, 2020 10:08:12)
[2020-03-30] MEDS: ROBITUSSIN DM PO SCH ×4 (10:23→21:25)
[2020-03-30] MEDS: PLAQUENIL PO SCH ×2 (10:23→21:25)
[2020-03-30] MEDS: VSL#3 PO SCH (10:23)
[2020-03-30] MEDS: K-RIDER 10 MEQ/NS 100 ML 10 MEQ/100 ML BAG IV PRN (12:38)
[2020-03-30 13:42] LABS: ABG ALLEN TEST POS; ABG BASE EXCESS 2.8 mmol/L (-2.0-2.0); ABG HCO3 27.2 mmol/L (22-26)
[2020-03-30] MEDS: LASIX IVP SCH (17:20)
[2020-03-30] MEDS: SNACK - Diabetic Appropriate PO SCH (21:24)
[2020-03-30] MEDS: TYLENOL 325 MG TAB PO PRN (22:34)
[2020-03-31] MEDS: K-RIDER 10 MEQ/NS 100 ML 10 MEQ/100 ML BAG IV PRN (00:54)
[2020-03-31 05:03] LABS: BASOPHILS % (AUTO) 0.1 % (0.2-1.0); HEMATOCRIT 44.4 % (42.0-54.0); HEMOGLOBIN 15.1 g/dL (13.5-18.0); LYMPHOCYTES % (AUTO) 15.1 % (21.0-51.0); MEAN CORPUSCULAR HEMOGLOBIN 28.6 pg (27.0-34.0); MEAN PLATELET VOLUME 8.8 fL (7.4-11.0); MONOCYTES # (AUTO) 0.3 x10^3/uL (0.3-0.8); NEUTROPHILS # (AUTO) 5.4 x10^3/uL (2.2-4.8); NEUTROPHILS % (AUTO) 79.8 % (42.0-75.0); PLATELET COUNT 175 X10^3/uL (150.0-450.0); RED BLOOD COUNT 5.29 X10^6/uL (4.7-6.0); WHITE BLOOD COUNT 6.7 X10^3/uL (3.6-10.0)
[2020-03-31 05:12] LABS: ALANINE AMINOTRANSFERASE 45 Units/L (12-78); ALBUMIN 2.5 g/dL (3.4-5.0); ALKALINE PHOSPHATASE 57 Units/L (46-116); ASPARTATE AMINO TRANSFERASE 38 Units/L (15-37); BLOOD UREA NITROGEN 24 mg/dL (7-18); CALCIUM 8.3 mg/dL (8.5-10.1); CARBON DIOXIDE 26.5 mmol/L (21-32); CHLORIDE 104 mmol/L (98-107); COR CA(FOR HYPOALB) 9.5 mg/dL (8.5-10.1); COR NA(FOR HYPERGLY) 143 mmol/L (136-145); CREATININE 1.07 mg/dL (0.70-1.30); SODIUM 140 mmol/L (136-145); TOTAL PROTEIN 6.8 g/dL (6.4-8.2); eGFR NON BLACK RACES > 60 (>60)
[2020-03-31] MEDS: ZOSYN VIAL 3.375 GRAMS 3.375 G in NS 100 ML IV + SPIKE MINIBAG* 100 ML IV SCH ×3 (05:42→21:03)
[2020-03-31] MEDS: HumuLIN R SUBCUT PRN ×4 (05:42→17:18)
--- NOTE | 2020-03-31 09:17 | RAD ---
HISTORYPNEUMONIA, COVID +STUDYCHEST x-ray, 1 VIEWCOMPARISONX-ray 03/30/2020FINDINGSBilateral lung infiltrates are probably from COVID-19 infection. These are similar to prior study. Heart is normal in size. No pneumothorax or pleural effusion is seen.IMPRESSIONAppearance of the chest is unchanged.Electronically signed by: Dimas Brady (Mar 31, 2020 09:16:15)
[2020-03-31] MEDS: LOVENOX INJ 40 MG SYR SC SCH (09:32)
[2020-03-31] MEDS: LASIX IVP SCH (09:32)
[2020-03-31] MEDS: PLAQUENIL PO SCH ×2 (09:33→20:35)
[2020-03-31] MEDS: REMDESIVIR (INVESTIGATIONAL DRUG GS-5734) 100 MG in NS 250 ML IV 250 ML IV SCH (09:36)
[2020-03-31] MEDS: ROBITUSSIN DM PO SCH ×4 (09:36→20:35)
[2020-03-31 09:37] LABS: ABG BASE EXCESS 3.2 mmol/L (-2.0-2.0); ABG HCO3 26.9 mmol/L (22-26)
[2020-03-31] MEDS: VSL#3 PO SCH (09:37)
[2020-03-31] MEDS: SOLU-Medrol 40 MG VIAL IVP SCH (09:37)
[2020-03-31] MEDS: ZITHROMAX INJ 500 MG VIAL 500 MG in NS 250 ML IV 250 ML IV SCH (10:00)
[2020-03-31 10:24] LABS: CKMB % 1.3 % (<4); CREATINE KINASE 77 Units/L (39-308); CREATINE KINASE MB < 1.0 ng/mL (0-4.0); TROPONIN I < 0.02 ng/mL (0-1.5)
[2020-03-31] MEDS ORDERED: NS 500 ML IV 500 ML IV ONE (11:21)
[2020-03-31] MEDS: LANOXIN INJ IVP SCH ×2 (12:00→18:46)
[2020-03-31] MEDS ORDERED: LOPRESSOR INJ 5 MG AMP ONE (12:13)
[2020-03-31] MEDS ORDERED: LOPRESSOR INJ 5 MG AMP IVP ONE (12:43)
[2020-03-31 16:08] LABS: CREATINE KINASE 104 Units/L (39-308); CREATINE KINASE MB < 1.0 ng/mL (0-4.0); TROPONIN I < 0.02 ng/mL (0-1.5)
[2020-03-31] MEDS: SNACK - Diabetic Appropriate PO SCH (20:34)
[2020-03-31] MEDS: VENTOLIN or PROAIR HFA IN PRN (21:24)
[2020-03-31 23:18] LABS: CKMB % 1.8 % (<4); CREATINE KINASE 55 Units/L (39-308); CREATINE KINASE MB < 1.0 ng/mL (0-4.0); TROPONIN I < 0.02 ng/mL (0-1.5)
[2020-04-01] MEDS: TYLENOL 325 MG TAB PO PRN (00:06)
[2020-04-01 05:33] LABS: ABG ALLEN TEST POS; ABG BASE EXCESS 2.6 mmol/L (-2.0-2.0); ABG HCO3 26.2 mmol/L (22-26)
[2020-04-01] MEDS: ZOSYN VIAL 3.375 GRAMS 3.375 G in NS 100 ML IV + SPIKE MINIBAG* 100 ML IV SCH ×3 (05:36→21:13)
[2020-04-01 06:09] LABS: BASOPHILS % (AUTO) 0.1 % (0.2-1.0); HEMATOCRIT 44.4 % (42.0-54.0); HEMOGLOBIN 15.4 g/dL (13.5-18.0); LYMPHOCYTES % (AUTO) 11.3 % (21.0-51.0); MEAN CORPUSCULAR HEMOGLOBIN 28.6 pg (27.0-34.0); MEAN CORPUSCULAR HGB CONC 34.7 g/dL (33.0-35.0); MEAN CORPUSCULAR VOLUME 82.4 fL (80.0-100.0); MEAN PLATELET VOLUME 8.5 fL (7.4-11.0); MONOCYTES # (AUTO) 0.5 x10^3/uL (0.3-0.8); MONOCYTES % (AUTO) 5.5 % (0.0-13.0); NEUTROPHILS # (AUTO) 7.4 x10^3/uL (2.2-4.8); NEUTROPHILS % (AUTO) 83.1 % (42.0-75.0); PLATELET COUNT 200 X10^3/uL (150.0-450.0); RED BLOOD COUNT 5.39 X10^6/uL (4.7-6.0); RED CELL DISTRIBUTION WIDTH 14.9 % (11.6-16.5); WHITE BLOOD COUNT 8.9 X10^3/uL (3.6-10.0)
[2020-04-01 06:10] LABS: ALANINE AMINOTRANSFERASE 52 Units/L (12-78); ALBUMIN 2.3 g/dL (3.4-5.0); ALKALINE PHOSPHATASE 58 Units/L (46-116); ASPARTATE AMINO TRANSFERASE 33 Units/L (15-37); BLOOD UREA NITROGEN 28 mg/dL (7-18); CALCIUM 8.2 mg/dL (8.5-10.1); CARBON DIOXIDE 25.2 mmol/L (21-32); CHLORIDE 106 mmol/L (98-107); COR CA(FOR HYPOALB) 9.6 mg/dL (8.5-10.1); COR NA(FOR HYPERGLY) 144 mmol/L (136-145); CREATININE 1.03 mg/dL (0.70-1.30); SODIUM 142 mmol/L (136-145); TOTAL PROTEIN 6.4 g/dL (6.4-8.2); eGFR NON BLACK RACES > 60 (>60)
--- NOTE | 2020-04-01 06:47 | RAD ---
HISTORYpneumonia, hypoxiaSTUDYCHEST, 1 VIEWCOMPARISONOne day priorTECHNIQUEAP view of the chestFINDINGSCardiac silhouette is normal. Stable multifocal bilateral airspace disease. Suspect small left pleural effusion. No pneumothorax.IMPRESSIONNo significant change.Electronically signed by: Ivan Alcaraz (Apr 01, 2020 06:47:22)
[2020-04-01] MEDS: LOVENOX INJ 40 MG SYR SC SCH (09:04)
[2020-04-01] MEDS: PLAVIX PO SCH (09:05)
[2020-04-01] MEDS: VSL#3 PO SCH (09:06)
[2020-04-01] MEDS: NORVASC TAB 5 MG PO SCH ×2 (09:07→20:50)
[2020-04-01] MEDS: PLAQUENIL PO SCH ×2 (09:07→20:30)
[2020-04-01] MEDS: SYNTHROID 50 mcg TAB PO SCH (09:08)
[2020-04-01] MEDS: K-DUR TAB 20 MEQ PO PRN (09:15)
[2020-04-01] MEDS: ROBITUSSIN DM PO SCH ×4 (09:16→20:50)
[2020-04-01] MEDS: REMDESIVIR (INVESTIGATIONAL DRUG GS-5734) 100 MG in NS 250 ML IV 250 ML IV SCH (09:16)
[2020-04-01] MEDS: SOLU-Medrol 40 MG VIAL IVP SCH (09:17)
[2020-04-01] MEDS: VENTOLIN or PROAIR HFA IN PRN ×2 (10:25→21:51)
[2020-04-01] MEDS: ZITHROMAX INJ 500 MG VIAL 500 MG in NS 250 ML IV 250 ML IV SCH (10:48)
[2020-04-01] MEDS: HumuLIN R SUBCUT PRN ×3 (12:16→20:50)
[2020-04-01] MEDS: TUSSIONEX PENNKINETIC SUSP PO PRN (13:54)
[2020-04-01] MEDS: LOPRESSOR TAB 25 MG PO SCH (20:30)
[2020-04-01] MEDS: LIPITOR TAB 20 MG PO SCH (20:30)
[2020-04-01] MEDS: SNACK - Diabetic Appropriate PO SCH (20:50)
[2020-04-02] MEDS: TUSSIONEX PENNKINETIC SUSP PO PRN (01:48)
[2020-04-02] MEDS: ZOSYN VIAL 3.375 GRAMS 3.375 G in NS 100 ML IV + SPIKE MINIBAG* 100 ML IV SCH ×3 (05:13→21:15)
[2020-04-02 05:26] LABS: ALANINE AMINOTRANSFERASE 39 Units/L (12-78); ALBUMIN 2.2 g/dL (3.4-5.0); ALKALINE PHOSPHATASE 66 Units/L (46-116); ASPARTATE AMINO TRANSFERASE 22 Units/L (15-37); BLOOD UREA NITROGEN 28 mg/dL (7-18); CALCIUM 8.1 mg/dL (8.5-10.1); CARBON DIOXIDE 29.8 mmol/L (21-32); CHLORIDE 106 mmol/L (98-107); COR CA(FOR HYPOALB) 9.5 mg/dL (8.5-10.1); COR NA(FOR HYPERGLY) 147 mmol/L (136-145); CREATININE 0.91 mg/dL (0.70-1.30); SODIUM 144 mmol/L (136-145); TOTAL PROTEIN 6.1 g/dL (6.4-8.2); eGFR NON BLACK RACES > 60 (>60)
[2020-04-02 05:32] LABS: BASOPHILS % (AUTO) 0.1 % (0.2-1.0); HEMATOCRIT 42.3 % (42.0-54.0); HEMOGLOBIN 14.7 g/dL (13.5-18.0); LYMPHOCYTES # (AUTO) 0.7 X10^3/uL (1.3-2.9); MEAN CORPUSCULAR HEMOGLOBIN 28.6 pg (27.0-34.0); MEAN CORPUSCULAR HGB CONC 34.8 g/dL (33.0-35.0); MEAN CORPUSCULAR VOLUME 82.1 fL (80.0-100.0); MEAN PLATELET VOLUME 8.6 fL (7.4-11.0); MONOCYTES # (AUTO) 0.6 x10^3/uL (0.3-0.8); MONOCYTES % (AUTO) 5.8 % (0.0-13.0); NEUTROPHILS # (AUTO) 8.4 x10^3/uL (2.2-4.8); NEUTROPHILS % (AUTO) 87.1 % (42.0-75.0); PLATELET COUNT 189 X10^3/uL (150.0-450.0); RED BLOOD COUNT 5.16 X10^6/uL (4.7-6.0); RED CELL DISTRIBUTION WIDTH 14.6 % (11.6-16.5); WHITE BLOOD COUNT 9.6 X10^3/uL (3.6-10.0)
[2020-04-02 05:50] LABS: ABG ALLEN TEST POS; ABG BASE EXCESS 3.2 mmol/L (-2.0-2.0); ABG HCO3 26.9 mmol/L (22-26)
--- NOTE | 2020-04-02 06:13 | RAD ---
HISTORYFollow-up pneumoniaSTUDYChest AP [id number]/03/2020FINDINGSThe heart is within normal limits in size. The kumar are normal. Diffuse right lung infiltrate are somewhat more prominent than on the prior examination. Left lung infiltrates are improving. No definite pleural effusions are identified. Bony thorax is unremarkable.IMPRESSIONSlight increase right lung infiltrates when compared to the prior examinationImproving left lung infiltratesElectronically signed by: KATIE FORD (Apr 02, 2020 06:11:53)
[2020-04-02] MEDS: HumuLIN R SUBCUT PRN ×2 (06:15→21:15)
[2020-04-02] MEDS: K-DUR TAB 20 MEQ PO PRN (06:16)
[2020-04-02] MEDS: LOVENOX INJ 40 MG SYR SC SCH (08:26)
[2020-04-02] MEDS: SOLU-Medrol 40 MG VIAL IVP SCH (08:26)
[2020-04-02] MEDS: REMDESIVIR (INVESTIGATIONAL DRUG GS-5734) 100 MG in NS 250 ML IV 250 ML IV SCH (08:32)
[2020-04-02] MEDS: VSL#3 PO SCH (08:53)
[2020-04-02] MEDS: SYNTHROID 50 mcg TAB PO SCH (08:53)
[2020-04-02] MEDS: LOPRESSOR TAB 25 MG PO SCH ×2 (08:54→21:15)
[2020-04-02] MEDS: NORVASC TAB 5 MG PO SCH ×2 (08:54→21:15)
[2020-04-02] MEDS: PLAQUENIL PO SCH ×2 (08:55→21:15)
[2020-04-02] MEDS: PLAVIX PO SCH (08:55)
[2020-04-02] MEDS: ROBITUSSIN DM PO SCH ×4 (08:56→21:15)
[2020-04-02] MEDS: LASIX IVP SCH ×2 (09:05→17:33)
[2020-04-02] MEDS: VENTOLIN or PROAIR HFA IN PRN ×4 (09:35→20:45)
[2020-04-02] MEDS: ZITHROMAX INJ 500 MG VIAL 500 MG in NS 250 ML IV 250 ML IV SCH (09:45)
[2020-04-02] MEDS: LIPITOR TAB 20 MG PO SCH (21:15)
[2020-04-02] MEDS: SNACK - Diabetic Appropriate PO SCH (21:15)
[2020-04-03] MEDS: TUSSIONEX PENNKINETIC SUSP PO PRN ×2 (01:53→21:00)
[2020-04-03 04:50] LABS: ABG BASE EXCESS 4.8 mmol/L (-2.0-2.0); ABG HCO3 28.1 mmol/L (22-26)
[2020-04-03 04:51] LABS: ABG ALLEN TEST POS
[2020-04-03] MEDS: ZOSYN VIAL 3.375 GRAMS 3.375 G in NS 100 ML IV + SPIKE MINIBAG* 100 ML IV SCH ×3 (05:01→21:00)
[2020-04-03] MEDS: HumuLIN R SUBCUT PRN ×3 (05:41→21:00)
[2020-04-03 05:44] LABS: BASOPHILS % (AUTO) 0.1 % (0.2-1.0); HEMATOCRIT 43.9 % (42.0-54.0); HEMOGLOBIN 14.9 g/dL (13.5-18.0); LYMPHOCYTES # (AUTO) 0.6 X10^3/uL (1.3-2.9); LYMPHOCYTES % (AUTO) 4.8 % (21.0-51.0); MEAN CORPUSCULAR HEMOGLOBIN 28.3 pg (27.0-34.0); MEAN CORPUSCULAR VOLUME 83.1 fL (80.0-100.0); MEAN PLATELET VOLUME 8.8 fL (7.4-11.0); MONOCYTES # (AUTO) 0.7 x10^3/uL (0.3-0.8); MONOCYTES % (AUTO) 5.3 % (0.0-13.0); NEUTROPHILS # (AUTO) 12.2 x10^3/uL (2.2-4.8); NEUTROPHILS % (AUTO) 89.8 % (42.0-75.0); PLATELET COUNT 156 X10^3/uL (150.0-450.0); RED BLOOD COUNT 5.28 X10^6/uL (4.7-6.0); RED CELL DISTRIBUTION WIDTH 14.6 % (11.6-16.5); WHITE BLOOD COUNT 13.6 X10^3/uL (3.6-10.0)
[2020-04-03 05:54] LABS: ALANINE AMINOTRANSFERASE 33 Units/L (12-78); ALBUMIN 2.2 g/dL (3.4-5.0); ALKALINE PHOSPHATASE 86 Units/L (46-116); ASPARTATE AMINO TRANSFERASE 21 Units/L (15-37); BLOOD UREA NITROGEN 29 mg/dL (7-18); CALCIUM 8.3 mg/dL (8.5-10.1); CARBON DIOXIDE 30.1 mmol/L (21-32); CHLORIDE 108 mmol/L (98-107); COR CA(FOR HYPOALB) 9.7 mg/dL (8.5-10.1); COR NA(FOR HYPERGLY) 150 mmol/L (136-145); CREATININE 1.01 mg/dL (0.70-1.30); SODIUM 146 mmol/L (136-145); eGFR NON BLACK RACES > 60 (>60)
[2020-04-03] MEDS: VENTOLIN or PROAIR HFA IN PRN ×4 (09:00→21:39)
[2020-04-03] MEDS: ZITHROMAX INJ 500 MG VIAL 500 MG in NS 250 ML IV 250 ML IV SCH (09:30)
[2020-04-03] MEDS: LASIX IVP SCH ×2 (09:37→17:12)
[2020-04-03] MEDS: LOPRESSOR TAB 25 MG PO SCH ×2 (09:39→21:00)
[2020-04-03] MEDS: PLAQUENIL PO SCH ×2 (09:39→21:00)
[2020-04-03] MEDS: PLAVIX PO SCH (09:40)
[2020-04-03] MEDS: ROBITUSSIN DM PO SCH ×4 (09:42→22:54)
[2020-04-03] MEDS: SYNTHROID 50 mcg TAB PO SCH (09:42)
[2020-04-03] MEDS: NORVASC TAB 5 MG PO SCH ×2 (09:42→21:00)
[2020-04-03] MEDS: SOLU-Medrol 40 MG VIAL IVP SCH (09:43)
[2020-04-03] MEDS: LOVENOX INJ 40 MG SYR SC SCH (09:43)
[2020-04-03] MEDS: VSL#3 PO SCH (09:43)
[2020-04-03] MEDS: K-DUR TAB 20 MEQ PO PRN (10:07)
--- NOTE | 2020-04-03 11:55 | PCM.PROG ---
Progress Note Progress Note for Day of Date of Exam: 04/03/20 Subjective Subjective: Pt is a 75 yo m admitted for COVID-19 pneumonia and acute respiratory failure. This morning his respiratory status has not improved. He had a trial off BiPAP but his O2 sats dropped down 70s-80s. He is now back on the BiPAP. Labs/imaging: Wbc 13.6, Hgb 14.9, Plt 156, Na 146, K 3.1, Cr 1.01, Gluc 254. AB.5/36/46/28/86% on 80% FiO2. His FiO2 was increased to 100% this morning after getting ABG results. His treatment course includes: Zithromax, Zosyn, and Remedesivir and convalescent plasma for treatment of COVID-19 pneumonia. He is receiving IV lasix for CHF exacerbation. His Atrial fibrillation is not rate controlled, he is Lopressor 25mg BID, will add cardizem and monitor requirement. Will continue to monitor and follow up labs/imaging in the morning. Past Medical Family Social History Past Med/Fam/Surg Hx: No changes since H&P Allergies: Allergies No Known Drug Allergies Allergy (Verified 09/29/19 16:08) Review of Systems ROS: No change since H&P Vital Signs and I&O's Vital Signs: Temperature 98.4 F Pulse Rate [Left Brachial] 112 Pulse Rate 123 Respiratory Rate 32 Blood Pressure [Left Arm] 157/90 Blood Pressure [Right Arm] 168/79 Blood Pressure 160/78 O2 Sat by Pulse Oximetry 90 Intake and Output: Intake & Output 03/31/20 04/01/20 04/02/20 04/03/20 23:59 23:59 23:59 23:59 Intake Total 1280 / 1280 1755 / 1755 1797 / 1797 750 / 750 Output Total 500 / 500 200 / 200 1625 / 1625 875 / 875 Balance 780 / 780 1555 / 1555 172 / 172 -125 / -125 Physical Exam Oriented: Normal Eyes: Blurred Vision (CHRONIC) Ear: Normal Nose: Normal Throat: Dry Cardiovascular: Tachycardia and Edema : Normal Auscultation: Bowel Sounds: Normal Tenderness: Normal Skin: Decreased Turgur Musculoskeletal: Normal Psychiatric: Anxiety Affect: Anxious Speech Pattern: Clear and Appropriate Laboratory and Diagnostics Result Diagrams: 04/03/20 04:35 04/03/20 04:35 Labs: 03/28/20 21:05 Blood Blood Culture - Final 03/28/20 20:39 Blood Blood Culture - Final 04/01/20 09:41 Sputum - Expectorated Sputum Sputum Culture - Final 04/01/20 09:41 Sputum - Expectorated Sputum - Final Laboratory WBC 13.6 X10^3/uL (3.6-10.0) H 04/03/20 04:35 RBC 5.28 X10^6/uL (4.7-6.0) 04/03/20 04:35 Hgb 14.9 g/dL (13.5-18.0) 04/03/20 04:35 Hct 43.9 % (42.0-54.0) 04/03/20 04:35 MCV 83.1 fL (80.0-100.0) 04/03/20 04:35 MCH 28.3 pg (27.0-34.0) 04/03/20 04:35 MCHC 34.0 g/dL (33.0-35.0) 04/03/20 04:35 RDW 14.6 % (11.6-16.5) 04/03/20 04:35 Plt Count 156 X10^3/uL (150.0-450.0) 04/03/20 04:35 MPV 8.8 fL (7.4-11.0) 04/03/20 04:35 Neut % (Auto) 89.8 % (42.0-75.0) H 04/03/20 04:35 Lymph % (Auto) 4.8 % (21.0-51.0) L 04/03/20 04:35 Love % (Auto) 5.3 % (0.0-13.0) 04/03/20 04:35 Eos % (Auto) 0.0 % (0.9-2.9) L 04/03/20 04:35 Baso % (Auto) 0.1 % (0.2-1.0) L 04/03/20 04:35 Neut # (Auto) 12.2 x10^3/uL (2.2-4.8) H 04/03/20 04:35 Lymph # (Auto) 0.6 X10^3/uL (1.3-2.9) L 04/03/20 04:35 Love # (Auto) 0.7 x10^3/uL (0.3-0.8) 04/03/20 04:35 Eos # (Auto) 0.0 x10^3/uL (0.0-0.2) 04/03/20 04:35 Baso # (Auto) 0.0 X10^3/uL (0.0-0.1) 04/03/20 04:35 Absolute Nucleated RBC 0.4 /100WBC 04/03/20 04:35 Sample Site Lr 04/03/20 04:45 ABG pH 7.500 (7.35-7.45) H 04/03/20 04:45 ABG pCO2 36.0 mmHg (35.0-45.0) 04/03/20 04:45 ABG pO2 46.0 mmHg (80.0-100.0) L* 04/03/20 04:45 ABG HCO3 28.1 mmol/L (22-26) H 04/03/20 04:45 ABG O2 Saturation 86.0 % (90-100) L 04/03/20 04:45 ABG Base Excess 4.8 mmol/L (-2.0-2.0) H 04/03/20 04:45 Tj Test Pos 04/03/20 04:45 A-a Gradient 479.0 mmHg 04/03/20 04:45 FiO2 80.0 04/03/20 04:45 Blood Gas Comments Abigail well ae 04/03/20 04:45 Sodium 146 mmol/L (136-145) H 04/03/20 04:35 Corrected Sodium 150 mmol/L (136-145) H 04/03/20 04:35 Potassium 3.1 mmol/L (3.5-5.1) L 04/03/20 04:35 Chloride 108 mmol/L (98-107) H 04/03/20 04:35 Carbon Dioxide 30.1 mmol/L (21-32) 04/03/20 04:35 BUN 29 mg/dL (7-18) H 04/03/20 04:35 Creatinine 1.01 mg/dL (0.70-1.30) 04/03/20 04:35 Est GFR (MDRD) Af Amer > 60 (>60) 04/03/20 04:35 Est GFR (MDRD) Non-Af > 60 (>60) 04/03/20 04:35 Glucose 254 mg/dL (65-99) H 04/03/20 04:35 POC Glucose (mg/dL) 153 mg/dL (65-99) H 03/29/20 12:20 Lactic Acid 1.8 mmol/L (0.4-2.0) 03/28/20 20:39 Calcium 8.3 mg/dL (8.5-10.1) L 04/03/20 04:35 Corrected Calcium 9.7 mg/dL (8.5-10.1) 04/03/20 04:35 Magnesium 2.2 mg/dL (1.7-2.9) 03/30/20 05:00 Ferritin 193 ng/mL (26-388) 03/28/20 20:39 Total Bilirubin 1.50 mg/dL (0.2-1.0) H 04/03/20 04:35 AST 21 Units/L (15-37) 04/03/20 04:35 ALT 33 Units/L (12-78) 04/03/20 04:35 Alkaline Phosphatase 86 Units/L (46-116) 04/03/20 04:35 Lactate Dehydrogenase 268 Units/L (85-227) H 03/28/20 20:39 Creatine Kinase 55 Units/L (39-308) 03/31/20 23:00 CK-MB (CK-2) < 1.0 ng/mL (0-4.0) 03/31/20 23:00 CK/CKMB % Calc 1.8 % (<4) 03/31/20 23:00 Troponin I < 0.02 ng/mL (0-1.5) 03/31/20 23:00 C-Reactive Protein 47.00 mg/L (0-3.0) H 03/28/20 20:39 Total Protein 6.0 g/dL (6.4-8.2) L 04/03/20 04:35 Albumin 2.2 g/dL (3.4-5.0) L 04/03/20 04:35 Globulin 3.8 g/dL (2.5-4.5) 04/03/20 04:35 Albumin/Globulin Ratio 0.6 Ratio (1.1-2.1) L 04/03/20 04:35 Specimen Type Clean catch urine 03/29/20 06:25 Urine Color Yellow (YELLOW) 03/29/20 06:25 Urine Appearance Clear (CLEAR) 03/29/20 06:25 Urine pH 6.0 (5.0 - 8.0) 03/29/20 06:25 Ur Specific [place] 1.015 (1.000-1.030) 03/29/20 06:25 Urine Protein 3+ (NEGATIVE) 03/29/20 06:25 Urine Glucose (UA) 1+ (NEGATIVE) 03/29/20 06:25 Urine Ketones Negative (NEGATIVE) 03/29/20 06:25 Urine Occult Blood 2+ (NEGATIVE) 03/29/20 06:25 Urine Nitrite Negative (NEGATIVE) 03/29/20 06:25 Urine Bilirubin Negative (NEGATIVE) 03/29/20 06:25 Urine Urobilinogen Normal (NORMAL) 03/29/20 06:25 Ur Leukocyte Esterase Negative (NEGATIVE) 03/29/20 06:25 Urine RBC 0-2 /HPF (0-3) 03/29/20 06:25 Urine WBC 0-2 /HPF (0-5) 03/29/20 06:25 Ur Squamous Epith Cells Rare /HPF (NEGATIVE) 03/29/20 06:25 Amorphous Sediment Trace /HPF (NEGATIVE) 03/29/20 06:25 Urine Bacteria Trace /HPF (NEGATIVE) 03/29/20 06:25 Urine Mucus Few /HPF (NEGATIVE) 03/29/20 06:25 Ur Culture Indicated? No/not indicated 03/29/20 06:25 Blood Type A POSITIVE 03/29/20 16:25 Plan (1) Pneumonia due to COVID-19 virus: Status: Acute Plan: ADMIT, ICU ISOLATION STATUS IV HYDRATION, IV ZITHROMAX AND ZOSYN REMDESIVIR AND CONVALESCENT PLASMA, IV SOLU MEDROL BS CONTROL, CARDIAC MONITORING REPEAT AM CXR AND ABG, RESP THERAPY AND SUPPLEMENTAL O2 (2) History of CVA (cerebrovascular accident): Status: Chronic (3) Diabetes mellitus, type 2: Status: Chronic (4) GERD (gastroesophageal reflux disease): Status: Chronic (5) Hypertension: Status: Chronic
[2020-04-03] MEDS: CARDIZEM TAB 30 MG PLAIN PO SCH ×3 (14:28→21:00)
[2020-04-03] MEDS: LIPITOR TAB 20 MG PO SCH (21:00)
[2020-04-03] MEDS: SNACK - Diabetic Appropriate PO SCH (21:00)
[2020-04-04 05:23] LABS: ABG BASE EXCESS 5.2 mmol/L (-2.0-2.0)
[2020-04-04 05:24] LABS: ABG ALLEN TEST POS
[2020-04-04] MEDS: ZOSYN VIAL 3.375 GRAMS 3.375 G in NS 100 ML IV + SPIKE MINIBAG* 100 ML IV SCH (05:59)
[2020-04-04] MEDS: CARDIZEM TAB 30 MG PLAIN PO SCH (05:59)
[2020-04-04] MEDS: HumuLIN R SUBCUT PRN (06:02)
[2020-04-04 06:23] LABS: ALANINE AMINOTRANSFERASE 29 Units/L (12-78); ALBUMIN 2.2 g/dL (3.4-5.0); ALKALINE PHOSPHATASE 103 Units/L (46-116); ASPARTATE AMINO TRANSFERASE 20 Units/L (15-37); BLOOD UREA NITROGEN 34 mg/dL (7-18); CALCIUM 8.3 mg/dL (8.5-10.1); CARBON DIOXIDE 29.6 mmol/L (21-32); CHLORIDE 110 mmol/L (98-107); COR CA(FOR HYPOALB) 9.7 mg/dL (8.5-10.1); COR NA(FOR HYPERGLY) 154 mmol/L (136-145); CREATININE 1.22 mg/dL (0.70-1.30); MAGNESIUM 2.5 mg/dL (1.7-2.9); SODIUM 148 mmol/L (136-145); TOTAL PROTEIN 5.8 g/dL (6.4-8.2); eGFR NON BLACK RACES > 60 (>60)
[2020-04-04 06:30] LABS: BASOPHILS % (AUTO) 0.1 % (0.2-1.0); HEMOGLOBIN 15.4 g/dL (13.5-18.0); LYMPHOCYTES # (AUTO) 0.6 X10^3/uL (1.3-2.9); LYMPHOCYTES % (AUTO) 3.7 % (21.0-51.0); MEAN CORPUSCULAR HEMOGLOBIN 28.6 pg (27.0-34.0); MEAN CORPUSCULAR HGB CONC 34.2 g/dL (33.0-35.0); MEAN CORPUSCULAR VOLUME 83.7 fL (80.0-100.0); MEAN PLATELET VOLUME 9.2 fL (7.4-11.0); MONOCYTES # (AUTO) 0.8 x10^3/uL (0.3-0.8); MONOCYTES % (AUTO) 4.6 % (0.0-13.0); NEUTROPHILS # (AUTO) 15.7 x10^3/uL (2.2-4.8); NEUTROPHILS % (AUTO) 91.6 % (42.0-75.0); PLATELET COUNT 108 X10^3/uL (150.0-450.0); RED BLOOD COUNT 5.38 X10^6/uL (4.7-6.0); RED CELL DISTRIBUTION WIDTH 15.3 % (11.6-16.5); WHITE BLOOD COUNT 17.1 X10^3/uL (3.6-10.0)
[2020-04-04] MEDS: K-DUR TAB 20 MEQ PO PRN (06:51)
[2020-04-04 07:30] LABS: BAND NEUTROPHILS % 2 % (0-10); PLATELET MORPHOLOGY COMMENT NORMAL (NORMAL)
[2020-04-04] MEDS: VENTOLIN or PROAIR HFA IN PRN (08:15)
[2020-04-04] MEDS: LOPRESSOR TAB 25 MG PO SCH (08:49)
[2020-04-04] MEDS: PLAVIX PO SCH (08:50)
[2020-04-04] MEDS: NORVASC TAB 5 MG PO SCH (08:50)
[2020-04-04] MEDS: VSL#3 PO SCH (08:50)
[2020-04-04] MEDS: LOVENOX INJ 40 MG SYR SC SCH (08:51)
[2020-04-04] MEDS: ROBITUSSIN DM PO SCH ×2 (08:51→12:38)
[2020-04-04] MEDS: PLAQUENIL PO SCH (08:52)
[2020-04-04] MEDS: SOLU-Medrol 40 MG VIAL IVP SCH (08:52)
[2020-04-04] MEDS: SYNTHROID 50 mcg TAB PO SCH (08:53)
[2020-04-04] MEDS: ZITHROMAX INJ 500 MG VIAL 500 MG in NS 250 ML IV 250 ML IV SCH (09:00)
[2020-04-04] MEDS ORDERED: CARDIZEM CD 120 MG 24-HR PO SCH (10:00)
[2020-04-04] MEDS ORDERED: LOPRESSOR TAB 25 MG ONE (10:26)
[2020-04-04] MEDS ORDERED: D5W 1000 ML IV 1,000 ML IV ONE (10:26)
[2020-04-04] MEDS: D5W 1000 ML IV 1,000 ML IV SCH ×2 (10:27→11:36)
[2020-04-04 10:30] LABS: ABG BASE EXCESS 3.2 mmol/L (-2.0-2.0); ABG HCO3 26.9 mmol/L (22-26)
[2020-04-04 10:32] LABS: ABG ALLEN TEST POS
[2020-04-04] MEDS ORDERED: DIPRIVAN VIAL 20 ML ONE (10:43)
[2020-04-04] MEDS ORDERED: NS 1000 ML 1,000 ML ONE (10:43)
[2020-04-04] MEDS ORDERED: DIPRIVAN PREMIX 1 GRAM IV 1,000 MG/100 ML VIAL ONE (10:43)
[2020-04-04] MEDS ORDERED: QUELICIN (OR ANECTINE) ONE (10:44)
[2020-04-04] MEDS ORDERED: DIPRIVAN VIAL IV ONE ×2 (10:54→10:55)
[2020-04-04] MEDS ORDERED: QUELICIN (OR ANECTINE) IVP ONE (10:55)
--- NOTE | 2020-04-04 11:15 | W.DIS.FURT ---
Summary of Discharge Discharge Summary of Date Date of Exam: 04/04/20 Admission Date Date of Admission: 03/28/20 Admission Diagnosis Hospital Course: Pt is a 75 y/o m pmhx HTN, DMT2, admitted for COVID-19 pneumonia (positive 03/25) and acute respiratory failure. His treatment course includes: Zithromax, Zosyn, Remdesivir, and convalescent plasma. This morning pt had severe dyspnea with decreasing respiratory drive, accessory respiratory muscle use. His ABG this morning is: pH 7.47/CO2 37/O2 36/HCO3 26, 74% on BiPAP FiO2 100%. Discussed w/ son and pt critical status and need for mechanical ventilation. Son verbalized understanding. Pt will be intubated and placed on mechanical ventilation. He will be transferred to [place], [place] for higher level care after speaking to critical care Dr Harris. Critical care time spent 30-74 minutes. Labs/imaging: Wbc 17.1, Hgb 15.4, Plt 108, Na 154, K 3.6, Cr 1.22, Gluc 333. CXR:Bilateral infiltrates. BP 132/79/ P 125, RR 30, Pulse Ox 85% Vital Signs: Vital Signs (72 hours) 04/01/20 12:00 04/01/20 13:00 04/01/20 14:00 Temperature 98.2 F Pulse Rate Pulse Rate [Left Brachial] 114 H 121 H 115 H Respiratory Rate 18 47 H 29 H Blood Pressure Blood Pressure [Left Arm] 159/74 146/74 144/72 O2 Sat by Pulse Oximetry 94 L 94 L 92 L 04/01/20 15:00 04/01/20 16:00 04/01/20 17:00 Temperature 98.2 F Pulse Rate Pulse Rate [Left Brachial] 107 H 105 H 107 H Respiratory Rate 30 H 23 31 H Blood Pressure Blood Pressure [Left Arm] 152/77 145/77 129/58 O2 Sat by Pulse Oximetry 94 L 94 L 94 L 04/01/20 18:00 04/01/20 19:00 04/01/20 20:00 Temperature 99.4 F Pulse Rate Pulse Rate [Left Brachial] 107 H 109 H 109 H Respiratory Rate 30 H 22 26 H Blood Pressure Blood Pressure [Left Arm] 126/71 166/52 175/81 O2 Sat by Pulse Oximetry 90 L 94 L 92 L 04/01/20 21:00 04/01/20 21:52 04/01/20 22:00 Temperature Pulse Rate 105 H Pulse Rate [Left Brachial] 114 H 102 H Respiratory Rate 25 H 22 Blood Pressure Blood Pressure [Left Arm] 152/87 142/76 O2 Sat by Pulse Oximetry 93 L 93 L 93 L 04/01/20 23:00 04/02/20 00:00 04/02/20 01:00 Temperature 98.4 F Pulse Rate Pulse Rate [Left Brachial] 98 H 97 H 102 H Respiratory Rate 23 17 23 Blood Pressure Blood Pressure [Left Arm] 134/70 140/78 154/84 O2 Sat by Pulse Oximetry 91 L 92 L 91 L 04/02/20 02:00 04/02/20 03:00 04/02/20 04:00 Temperature 98.7 F Pulse Rate Pulse Rate [Left Brachial] 101 H 104 H 106 H Respiratory Rate 22 21 24 Blood Pressure Blood Pressure [Left Arm] 148/72 148/72 145/69 O2 Sat by Pulse Oximetry 90 L 91 L 92 L 04/02/20 05:00 04/02/20 06:00 04/02/20 07:00 Temperature Pulse Rate Pulse Rate [Left Brachial] 107 H 111 H 109 H Respiratory Rate 23 21 30 H Blood Pressure Blood Pressure [Left Arm] 143/74 147/89 154/91 O2 Sat by Pulse Oximetry 91 L 93 L 96 04/02/20 08:00 04/02/20 09:00 04/02/20 10:00 Temperature Pulse Rate Pulse Rate [Left Brachial] 104 H 114 H 104 H Respiratory Rate 26 H 29 H 32 H Blood Pressure Blood Pressure [Left Arm] 158/84 159/81 149/87 O2 Sat by Pulse Oximetry 91 L 91 L 92 L 04/02/20 11:00 04/02/20 12:00 04/02/20 13:00 Temperature 98.4 F Pulse Rate Pulse Rate [Left Brachial] 104 H 103 H 111 H Respiratory Rate 30 H 29 H 27 H Blood Pressure Blood Pressure [Left Arm] 149/83 164/83 154/92 O2 Sat by Pulse Oximetry 92 L 93 L 92 L 04/02/20 14:00 04/02/20 15:00 04/02/20 16:00 Temperature 98.4 F 98.1 F Pulse Rate Pulse Rate [Left Brachial] 109 H 112 H 107 H Respiratory Rate 28 H 29 H 29 H Blood Pressure Blood Pressure [Left Arm] 152/72 156/82 152/82 O2 Sat by Pulse Oximetry 91 L 90 L 92 L 04/02/20 16:20 04/02/20 16:34 04/02/20 17:00 Temperature Pulse Rate Pulse Rate [Left Brachial] 122 H Respiratory Rate 21 35 H Blood Pressure Blood Pressure [Left Arm] 157/75 O2 Sat by Pulse Oximetry 89 L 88 L 04/02/20 18:00 04/02/20 19:00 04/02/20 20:00 Temperature 98.5 F Pulse Rate Pulse Rate [Left Brachial] 129 H 119 H 120 H Respiratory Rate 29 H 25 H 24 Blood Pressure Blood Pressure [Left Arm] 170/81 155/75 141/83 O2 Sat by Pulse Oximetry 90 L 90 L 89 L 04/02/20 20:45 04/02/20 21:00 04/02/20 22:00 Temperature Pulse Rate 123 H Pulse Rate [Left Brachial] 117 H 121 H Respiratory Rate 24 25 H 26 H Blood Pressure Blood Pressure [Left Arm] 163/87 168/77 O2 Sat by Pulse Oximetry 89 L 90 L 94 L 04/02/20 23:00 04/03/20 00:00 04/03/20 00:15 Temperature 98.7 F Pulse Rate 108 H Pulse Rate [Left Brachial] 123 H 101 H Respiratory Rate 24 23 35 H Blood Pressure 155/74 Blood Pressure [Left Arm] 158/85 155/74 O2 Sat by Pulse Oximetry 91 L 94 L 89 L 04/03/20 00:30 04/03/20 00:45 04/03/20 01:00 Temperature Pulse Rate 105 H 113 H 113 H Pulse Rate [Left Brachial] 107 H Respiratory Rate 34 H 30 H 33 H Blood Pressure 147/78 144/79 Blood Pressure [Left Arm] 144/79 O2 Sat by Pulse Oximetry 88 L 88 L 89 L 04/03/20 01:15 04/03/20 01:30 04/03/20 01:45 Temperature Pulse Rate 113 H 116 H 118 H Pulse Rate [Left Brachial] Respiratory Rate 33 H 35 H 35 H Blood Pressure 150/78 Blood Pressure [Left Arm] O2 Sat by Pulse Oximetry 87 L 90 L 91 L 04/03/20 02:00 04/03/20 02:15 09/05/20 02:30 Temperature Pulse Rate 116 H 117 H 113 H Pulse Rate [Left Brachial] 99 H Respiratory Rate 30 H 33 H 31 H Blood Pressure 160/90 147/81 Blood Pressure [Left Arm] 160/90 O2 Sat by Pulse Oximetry 93 L 88 L 88 L 04/03/20 02:45 04/03/20 03:00 04/03/20 03:15 Temperature Pulse Rate 117 H 117 H 119 H Pulse Rate [Left Brachial] 115 H Respiratory Rate 32 H 32 H 30 H Blood Pressure 170/95 Blood Pressure [Left Arm] 160/85 O2 Sat by Pulse Oximetry 87 L 89 L 87 L 04/03/20 03:30 04/03/20 03:45 04/03/20 04:00 Temperature 98.9 F Pulse Rate 115 H 120 H 118 H Pulse Rate [Left Brachial] 107 H Respiratory Rate 31 H 32 H 30 H Blood Pressure 160/85 149/89 Blood Pressure [Left Arm] 149/89 O2 Sat by Pulse Oximetry 88 L 88 L 88 L 04/03/20 04:15 04/03/20 04:30 04/03/20 04:45 Temperature Pulse Rate 116 H 119 H 121 H Pulse Rate [Left Brachial] Respiratory Rate 30 H 31 H 31 H Blood Pressure 153/84 Blood Pressure [Left Arm] O2 Sat by Pulse Oximetry 87 L 89 L 88 L 04/03/20 05:00 04/03/20 05:15 04/03/20 05:30 Temperature Pulse Rate 115 H 120 H 115 H Pulse Rate [Left Brachial] 106 H Respiratory Rate 31 H 30 H 28 H Blood Pressure 169/77 169/78 Blood Pressure [Left Arm] 169/77 O2 Sat by Pulse Oximetry 92 L 94 L 94 L 04/03/20 05:45 04/03/20 06:00 04/03/20 06:15 Temperature Pulse Rate 122 H 118 H 112 H Pulse Rate [Left Brachial] 112 H Respiratory Rate 28 H 28 H 26 H Blood Pressure 157/90 Blood Pressure [Left Arm] 157/90 O2 Sat by Pulse Oximetry 89 L 91 L 92 L 04/03/20 06:30 04/03/20 06:45 04/03/20 07:00 Temperature Pulse Rate 115 H 109 H 115 H Pulse Rate [Left Brachial] Respiratory Rate 27 H 27 H 27 H Blood Pressure 156/84 161/76 Blood Pressure [Left Arm] O2 Sat by Pulse Oximetry 92 L 92 L 93 L 04/03/20 07:15 04/03/20 07:30 04/03/20 07:31 Temperature Pulse Rate 115 H 120 H 122 H Pulse Rate [Left Brachial] Respiratory Rate 27 H 30 H 29 H Blood Pressure 174/73 Blood Pressure [Left Arm] O2 Sat by Pulse Oximetry 94 L 94 L 94 L 04/03/20 07:45 04/03/20 08:00 04/03/20 08:15 Temperature 98.4 F Pulse Rate 125 H 124 H 120 H Pulse Rate [Left Brachial] Respiratory Rate 30 H 29 H 27 H Blood Pressure 159/93 Blood Pressure [Left Arm] O2 Sat by Pulse Oximetry 94 L 92 L 93 L 04/03/20 08:30 04/03/20 08:45 04/03/20 09:00 Temperature Pulse Rate 117 H 123 H 122 H Pulse Rate [Left Brachial] Respiratory Rate 28 H 29 H 29 H Blood Pressure 164/81 148/80 Blood Pressure [Left Arm] O2 Sat by Pulse Oximetry 91 L 90 L 91 L 04/03/20 09:15 04/03/20 09:30 04/03/20 09:31 Temperature Pulse Rate 127 H 128 H 134 H Pulse Rate [Left Brachial] Respiratory Rate 32 H 29 H 32 H Blood Pressure 179/83 Blood Pressure [Left Arm] O2 Sat by Pulse Oximetry 80 L 82 L 81 L 04/03/20 09:45 04/03/20 10:00 04/03/20 10:01 Temperature Pulse Rate 119 H 127 H 127 H Pulse Rate [Left Brachial] Respiratory Rate 29 H 30 H 29 H Blood Pressure 188/85 Blood Pressure [Left Arm] O2 Sat by Pulse Oximetry 79 L 91 L 91 L 04/03/20 10:15 04/03/20 10:30 04/03/20 10:31 Temperature Pulse Rate 128 H 131 H 133 H Pulse Rate [Left Brachial] Respiratory Rate 36 H 34 H 35 H Blood Pressure 171/78 Blood Pressure [Left Arm] O2 Sat by Pulse Oximetry 90 L 93 L 85 L 04/03/20 10:45 04/03/20 11:00 04/03/20 11:01 Temperature Pulse Rate 133 H 131 H 134 H Pulse Rate [Left Brachial] Respiratory Rate 30 H 33 H 32 H Blood Pressure 160/78 Blood Pressure [Left Arm] O2 Sat by Pulse Oximetry 78 L 91 L 92 L 04/03/20 11:15 04/03/20 11:30 04/03/20 11:31 Temperature Pulse Rate 123 H 116 H 116 H Pulse Rate [Left Brachial] Respiratory Rate 32 H 31 H 31 H Blood Pressure 154/80 Blood Pressure [Left Arm] O2 Sat by Pulse Oximetry 90 L 89 L 90 L 04/03/20 11:45 04/03/20 12:00 04/03/20 12:15 Temperature Pulse Rate 109 H 106 H 103 H Pulse Rate [Left Brachial] Respiratory Rate 29 H 32 H 32 H Blood Pressure 150/77 Blood Pressure [Left Arm] O2 Sat by Pulse Oximetry 90 L 90 L 90 L 04/03/20 12:20 04/03/20 12:30 04/03/20 12:45 Temperature Pulse Rate 107 H 111 H 121 H Pulse Rate [Left Brachial] Respiratory Rate 30 H 31 H Blood Pressure 156/75 Blood Pressure [Left Arm] O2 Sat by Pulse Oximetry 90 L 92 L 92 L 04/03/20 13:00 04/03/20 13:15 04/03/20 13:30 Temperature Pulse Rate 129 H 121 H 119 H Pulse Rate [Left Brachial] Respiratory Rate 31 H 30 H 31 H Blood Pressure 153/91 147/69 Blood Pressure [Left Arm] O2 Sat by Pulse Oximetry 92 L 93 L 91 L 04/03/20 13:45 04/03/20 14:00 04/03/20 14:15 Temperature Pulse Rate 119 H 121 H 122 H Pulse Rate [Left Brachial] Respiratory Rate 30 H 28 H 30 H Blood Pressure 150/72 Blood Pressure [Left Arm] O2 Sat by Pulse Oximetry 91 L 91 L 90 L 04/03/20 14:30 04/03/20 14:45 04/03/20 15:00 Temperature Pulse Rate 128 H 126 H 125 H Pulse Rate [Left Brachial] Respiratory Rate 31 H 30 H 29 H Blood Pressure 161/76 Blood Pressure [Left Arm] O2 Sat by Pulse Oximetry 94 L 92 L 92 L 04/03/20 15:01 04/03/20 15:15 04/03/20 15:30 Temperature Pulse Rate 125 H 120 H 122 H Pulse Rate [Left Brachial] Respiratory Rate 27 H 30 H 30 H Blood Pressure 160/76 166/89 Blood Pressure [Left Arm] O2 Sat by Pulse Oximetry 93 L 91 L 92 L 04/03/20 15:45 04/03/20 16:00 04/03/20 16:01 Temperature Pulse Rate 114 H 120 H 129 H Pulse Rate [Left Brachial] Respiratory Rate 33 H 37 H 38 H Blood Pressure 155/71 Blood Pressure [Left Arm] O2 Sat by Pulse Oximetry 94 L 92 L 93 L 04/03/20 16:15 04/03/20 16:30 04/03/20 16:31 Temperature Pulse Rate 123 H 129 H 119 H Pulse Rate [Left Brachial] Respiratory Rate 30 H 31 H 30 H Blood Pressure 165/77 Blood Pressure [Left Arm] O2 Sat by Pulse Oximetry 91 L 91 L 90 L 04/03/20 16:45 04/03/20 17:00 04/03/20 17:01 Temperature Pulse Rate 125 H 127 H 131 H Pulse Rate [Left Brachial] Respiratory Rate 31 H 33 H 30 H Blood Pressure 164/74 Blood Pressure [Left Arm] O2 Sat by Pulse Oximetry 94 L 93 L 94 L 04/03/20 17:15 04/03/20 17:30 04/03/20 17:31 Temperature Pulse Rate 122 H 126 H 122 H Pulse Rate [Left Brachial] Respiratory Rate 31 H 28 H 26 H Blood Pressure 164/72 Blood Pressure [Left Arm] O2 Sat by Pulse Oximetry 92 L 88 L 88 L 04/03/20 17:45 04/03/20 18:00 04/03/20 18:01 Temperature Pulse Rate 127 H 131 H 131 H Pulse Rate [Left Brachial] Respiratory Rate 28 H 25 H 30 H Blood Pressure 161/84 Blood Pressure [Left Arm] O2 Sat by Pulse Oximetry 90 L 94 L 93 L 04/03/20 18:15 04/03/20 19:00 04/03/20 20:00 Temperature 98.3 F Pulse Rate 122 H 120 H 125 H Pulse Rate [Left Brachial] Respiratory Rate 28 H 27 H 26 H Blood Pressure 164/76 159/93 Blood Pressure [Left Arm] O2 Sat by Pulse Oximetry 93 L 94 L 92 L 04/03/20 21:00 04/03/20 21:39 04/03/20 22:00 Temperature Pulse Rate 124 H 126 H 105 H Pulse Rate [Left Brachial] Respiratory Rate 27 H 25 H Blood Pressure 170/79 138/79 Blood Pressure [Left Arm] O2 Sat by Pulse Oximetry 95 92 L 92 L 04/03/20 23:00 04/04/20 00:00 04/04/20 01:00 Temperature 98.0 F Pulse Rate 110 H 109 H 102 H Pulse Rate [Left Brachial] Respiratory Rate 23 21 25 H Blood Pressure 127/76 140/75 151/85 Blood Pressure [Left Arm] O2 Sat by Pulse Oximetry 91 L 90 L 91 L 04/04/20 02:00 04/04/20 03:00 04/04/20 04:00 Temperature Pulse Rate 106 H 113 H 117 H Pulse Rate [Left Brachial] Respiratory Rate 24 25 H 25 H Blood Pressure 143/68 138/78 154/78 Blood Pressure [Left Arm] O2 Sat by Pulse Oximetry 89 L 90 L 89 L 04/04/20 05:00 04/04/20 06:00 04/04/20 07:00 Temperature Pulse Rate 109 H 127 H 144 H Pulse Rate [Left Brachial] Respiratory Rate 27 H 28 H 25 H Blood Pressure 137/73 153/84 142/74 Blood Pressure [Left Arm] O2 Sat by Pulse Oximetry 89 L 92 L 92 L 04/04/20 08:00 04/04/20 08:15 04/04/20 09:00 Temperature Pulse Rate 132 H 126 H 123 H Pulse Rate [Left Brachial] Respiratory Rate 28 H 25 H Blood Pressure 144/69 147/69 Blood Pressure [Left Arm] O2 Sat by Pulse Oximetry 92 L 90 L 91 L 04/04/20 10:00 Temperature Pulse Rate 121 H Pulse Rate [Left Brachial] Respiratory Rate 29 H Blood Pressure 132/79 Blood Pressure [Left Arm] O2 Sat by Pulse Oximetry 89 L Labs: Laboratory Last Values WBC 17.1 X10^3/uL (3.6-10.0) H 04/04/20 04:50 RBC 5.38 X10^6/uL (4.7-6.0) 04/04/20 04:50 Hgb 15.4 g/dL (13.5-18.0) 04/04/20 04:50 Hct 45.0 % (42.0-54.0) 04/04/20 04:50 MCV 83.7 fL (80.0-100.0) 04/04/20 04:50 MCH 28.6 pg (27.0-34.0) 04/04/20 04:50 MCHC 34.2 g/dL (33.0-35.0) 04/04/20 04:50 RDW 15.3 % (11.6-16.5) 04/04/20 04:50 Plt Count 108 X10^3/uL (150.0-450.0) L 04/04/20 04:50 Plt Count Comment Decreased (ADEQUATE) 04/04/20 04:50 MPV 9.2 fL (7.4-11.0) 04/04/20 04:50 Neut % (Auto) 91.6 % (42.0-75.0) H 04/04/20 04:50 Lymph % (Auto) 3.7 % (21.0-51.0) L 04/04/20 04:50 [place] % (Auto) 4.6 % (0.0-13.0) 04/04/20 04:50 Eos % (Auto) 0.0 % (0.9-2.9) L 04/04/20 04:50 Baso % (Auto) 0.1 % (0.2-1.0) L 04/04/20 04:50 Neut # (Auto) 15.7 x10^3/uL (2.2-4.8) H 04/04/20 04:50 Lymph # (Auto) 0.6 X10^3/uL (1.3-2.9) L 04/04/20 04:50 [place] # (Auto) 0.8 x10^3/uL (0.3-0.8) 04/04/20 04:50 Eos # (Auto) 0.0 x10^3/uL (0.0-0.2) 04/04/20 04:50 Baso # (Auto) 0.0 X10^3/uL (0.0-0.1) 04/04/20 04:50 Absolute Nucleated RBC 0.2 /100WBC 04/04/20 04:50 Total Counted 100 04/04/20 04:50 Neutrophils % (Manual) 93 % (39-76) H 04/04/20 04:50 Band Neutrophils % 2 % (0-10) 04/04/20 04:50 Lymphocytes % (Manual) 3 % (13-43) L 04/04/20 04:50 Monocytes % (Manual) 2 % (4-9) L 04/04/20 04:50 Plt Morphology Comment Normal (NORMAL) 04/04/20 04:50 RBC Morphology Normal (NORMAL) 04/04/20 04:50 Sample Site Right radial 04/04/20 10:21 ABG pH 7.470 (7.35-7.45) H 04/04/20 10:21 ABG pCO2 37.0 mmHg (35.0-45.0) 04/04/20 10:21 ABG pO2 36.0 mmHg (80.0-100.0) L* 04/04/20 10:21 ABG HCO3 26.9 mmol/L (22-26) H 04/04/20 10:21 ABG O2 Saturation 74.0 % (90-100) L* 04/04/20 10:21 ABG Base Excess 3.2 mmol/L (-2.0-2.0) H 04/04/20 10:21 Tj Test Pos 04/04/20 10:21 A-a Gradient 631.0 mmHg 04/04/20 10:21 FiO2 100.0 04/04/20 10:21 Blood Gas Comments Abigail well aw 04/04/20 10:21 Sodium 148 mmol/L (136-145) H 04/04/20 04:50 Corrected Sodium 154 mmol/L (136-145) H 04/04/20 04:50 Potassium 3.6 mmol/L (3.5-5.1) 04/04/20 04:50 Chloride 110 mmol/L (98-107) H 04/04/20 04:50 Carbon Dioxide 29.6 mmol/L (21-32) 04/04/20 04:50 BUN 34 mg/dL (7-18) H 04/04/20 04:50 Creatinine 1.22 mg/dL (0.70-1.30) 04/04/20 04:50 Est GFR (MDRD) Af Amer > 60 (>60) 04/04/20 04:50 Est GFR (MDRD) Non-Af > 60 (>60) 04/04/20 04:50 Glucose 333 mg/dL (65-99) H 04/04/20 04:50 POC Glucose (mg/dL) 153 mg/dL (65-99) H 03/29/20 12:20 Lactic Acid 1.8 mmol/L (0.4-2.0) 03/28/20 20:39 Calcium 8.3 mg/dL (8.5-10.1) L 04/04/20 04:50 Corrected Calcium 9.7 mg/dL (8.5-10.1) 04/04/20 04:50 Magnesium 2.5 mg/dL (1.7-2.9) 04/04/20 04:50 Ferritin 193 ng/mL (26-388) 03/28/20 20:39 Total Bilirubin 2.30 mg/dL (0.2-1.0) H 04/04/20 04:50 AST 20 Units/L (15-37) 04/04/20 04:50 ALT 29 Units/L (12-78) 04/04/20 04:50 Alkaline Phosphatase 103 Units/L (46-116) 04/04/20 04:50 Lactate Dehydrogenase 268 Units/L (85-227) H 03/28/20 20:39 Creatine Kinase 55 Units/L (39-308) 03/31/20 23:00 CK-MB (CK-2) < 1.0 ng/mL (0-4.0) 03/31/20 23:00 CK/CKMB % Calc 1.8 % (<4) 03/31/20 23:00 Troponin I < 0.02 ng/mL (0-1.5) 03/31/20 23:00 C-Reactive Protein 47.00 mg/L (0-3.0) H 03/28/20 20:39 Total Protein 5.8 g/dL (6.4-8.2) L 04/04/20 04:50 Albumin 2.2 g/dL (3.4-5.0) L 04/04/20 04:50 Globulin 3.6 g/dL (2.5-4.5) 04/04/20 04:50 Albumin/Globulin Ratio 0.6 Ratio (1.1-2.1) L 04/04/20 04:50 Specimen Type Clean catch urine 03/29/20 06:25 Urine Color Yellow (YELLOW) 03/29/20 06:25 Urine Appearance Clear (CLEAR) 03/29/20 06:25 Urine pH 6.0 (5.0 - 8.0) 03/29/20 06:25 Ur Specific [place] 1.015 (1.000-1.030) 03/29/20 06:25 Urine Protein 3+ (NEGATIVE) 03/29/20 06:25 Urine Glucose (UA) 1+ (NEGATIVE) 03/29/20 06:25 Urine Ketones Negative (NEGATIVE) 03/29/20 06:25 Urine Occult Blood 2+ (NEGATIVE) 03/29/20 06:25 Urine Nitrite Negative (NEGATIVE) 03/29/20 06:25 Urine Bilirubin Negative (NEGATIVE) 03/29/20 06:25 Urine Urobilinogen Normal (NORMAL) 03/29/20 06:25 Ur Leukocyte Esterase Negative (NEGATIVE) 03/29/20 06:25 Urine RBC 0-2 /HPF (0-3) 03/29/20 06:25 Urine WBC 0-2 /HPF (0-5) 03/29/20 06:25 Ur Squamous Epith Cells Rare /HPF (NEGATIVE) 03/29/20 06:25 Amorphous Sediment Trace /HPF (NEGATIVE) 03/29/20 06:25 Urine Bacteria Trace /HPF (NEGATIVE) 03/29/20 06:25 Urine Mucus Few /HPF (NEGATIVE) 03/29/20 06:25 Ur Culture Indicated? No/not indicated 03/29/20 06:25 Blood Type A POSITIVE 03/29/20 16:25 Reason For Visit: PNEUMONIA, HYPOXIA Discharge Date Discharge Date: 04/04/20 Discharge Diagnosis All Active Problems (Updated 03/30/20 @ 08:55 by Cara Najera) Pneumonia due to COVID-19 virus (Acute) Hypoxia (Acute) Headache (Acute) Nausea (Acute) Headache (Acute) Hypokalemia (Acute) Acute sore throat (Acute) Dizziness (Acute) Hyperlipidemia (Chronic) Hypertension (Chronic) GERD (gastroesophageal reflux disease) (Chronic) Diabetes mellitus, type 2 (Chronic) Hypothyroidism (Chronic) History of CVA (cerebrovascular accident) (Chronic) Plan of Treatment: Continue with present treatment and follow up plan. Pt is to keep follow up appointment as instructed and take medications as ordered. Discharge Medications Discharge Medications: No Known Drug Allergies Allergy (Verified 09/29/19 16:08) CONTINUE taking the following medications albuterol sulfate 2.5 mg INHALATION TID PRN 03/29/20 [History] atorvastatin 20 mg PO HS 03/29/20 [History] azithromycin 250 mg PO DAILY 03/29/20 [History] ergocalciferol (vitamin D2) [Vitamin D2] 50,000 unit PO .2XWK 03/29/20 [History] ezetimibe 10 mg PO DAILY 03/29/20 [History] glipizide 10 mg PO BID 03/29/20 [History] levofloxacin 500 mg PO DAILY 03/29/20 [History] methylprednisolone 12 mg PO DAILY 03/29/20 [History] pioglitazone 15 mg PO BID 03/29/20 [History] promethazine-DM 5 ml PO Q4H PRN 03/29/20 [History] Discharge Disposition Discharge Disposition: Transfer [place], [place] Discharge Condition: Guarded
--- NOTE | 2020-04-04 11:21 | RAD ---
HISTORYReason For StudySTUDYCHEST, 1 VIEWCOMPARISONSeptember 2019FINDINGSThe trachea is midline. The cardiac silhouette is stable. The lungs demonstrate worsening multifocal airspace opacities throughout both lungs. The bony thorax is unremarkable.IMPRESSIONWorsening multifocal pneumonia.Electronically signed by: PIOTR SHAIKH (Apr 04, 2020 11:20:41)
[2020-04-04] MEDS ORDERED: NORCURON INJ 10 MG VIAL 50 MG in NS 50 ML IV 50 ML IV PRN (11:38)
--- NOTE | 2020-04-04 11:48 | RAD ---
HISTORYET Tube PlacementSTUDYCHEST, 1 VIEWCOMPARISONEarlier same dayFINDINGSThe trachea is midline. The cardiac silhouette is stable. An ET tube is noted with tip just above the gamal. The lungs demonstrate stable multifocal airspace disease.. The bony thorax is unremarkable.IMPRESSIONET tube placement as above otherwise stable chest.Electronically signed by: PIOTR SHAIKH (Apr 04, 2020 11:47:21)
[2020-04-04] MEDS ORDERED: DIPRIVAN PREMIX 1 GRAM IV 1,000 MG/100 ML VIAL IV PRN (12:19)
[2020-04-04 12:41] LABS: BILIRUBIN,URINE NEGATIVE (NEGATIVE); BLOOD/HEMOGLOBIN,URINE 3+ (NEGATIVE); GLUCOSE, URINE 4+ (NEGATIVE); KETONES,URINE 1+ (NEGATIVE); LEUKOCYTE ESTERASE ,URINE NEGATIVE (NEGATIVE); NITRITES,URINE NEGATIVE (NEGATIVE); PROTEIN,URINE 3+ (NEGATIVE); UROBILINOGEN,URINE NORMAL (NORMAL)
[2020-04-04 12:55] LABS: ABG BASE EXCESS -5.6 mmol/L (-2.0-2.0); ABG HCO3 21.1 mmol/L (22-26)
[2020-04-04 12:56] LABS: ABG ALLEN TEST POS
[2020-04-04 13:12] LABS: APPEARANCE,URINE CLEAR (CLEAR); COLOR,URINE YELLOW (YELLOW)
[2020-04-04 13:13] VITALS: BP 109/56
[2020-04-04 13:13] LABS: AMORPHOUS SEDIMENT,UR TRACE /HPF (NEGATIVE); BACTERIA,URINE NEGATIVE /HPF (NEGATIVE); MUCUS,URINE MANY /HPF (NEGATIVE); SQUAMOUS EPITHELIAL CELL,UR FEW /HPF (NEGATIVE)
--- NOTE | 2020-04-04 13:22 | DR.UPDATE ---
H&P Update History and Physical Update: History and Physical reviewed and patient examined. Changes noted: NO Yes with the following:will place central line as ordered by Dr Burton H&P Reviewed: Yes Patient was examined?: Yes Procedures (ALL) - Central Line Placement PCM.CLCO: written consent Time out performed: Yes Patient placed pm monitor/pulse ox: Yes MD prep: mask, gown, gloves, other Centrial line prep: chlorhexidine scrub, sterile drapes applied Ultrasound used for placement: Yes (right IJ id'd, and direct visualization of RIJ cannulation.) Central line lumen ininserted: triple Post procedure: sutured in place, good blood return, all ports aspirated, flushed,capped, sterile dressing applied Post procedure xray: tip oc catheter in good position, no pneumothorax seen Patient tolerated procedure: Yes Complications: none
--- NOTE | 2020-04-04 13:25 | RAD ---
HISTORYcentral line placementSTUDYCHEST, 1 VIEWCOMPARISONSeptember 2019FINDINGSThe trachea is midline. The cardiac silhouette is stable as is an ETT. And right-sided central line is noted with tip overlying the distal SVC.. The lungs are stable with persistent multifocal airspace disease. The bony thorax is unremarkable.IMPRESSIONRight-sided line placement as above otherwise stable chestElectronically signed by: PIOTR SHAIKH (Apr 04, 2020 13:25:07)
[2020-04-04] MEDS ORDERED: LOPRESSOR TAB 25 MG PO SCH (21:00)
== END 2020-04-04 13:20 | disposition short-term general hospital (02) | DRG 208 ==
LOC: ER 20:24 → MED/SURG 03-29 02:00 → ICU 03-30 12:09
PROVIDERS: ADMIT Internal Medicine; ATTEND Internal Medicine